=== PATIENT | female | born 1940 | race Caucasian/White ===

== ENCOUNTER 2020-12-21 14:50 | Inpatient (IN) ==
[2020-12-21 16:33] LABS: Basophils % 0.3 %; Eosinophils # 0.1 K/mcL (0.0-0.6); Eosinophils % 1.2 %; Hematocrit 38.5 % (35.3-44.9); Hemoglobin 11.4 g/dL (11.5-15.4); Immature Granulocytes % 0.3 % (0-4); Lymphocytes # 0.9 K/mcL (0.6-4.6); Lymphocytes % 15.2 %; Mean Corpuscular HGB Conc 29.6 g/dL (31.6-35.5); Mean Corpuscular Hemoglobin 27.9 pg (28.0-33.3); Mean Corpuscular Volume 94.4 fL (83.0-100.0); Mean Platelet Volume 8.8 fL (9.4-12.4); Monocytes # 0.5 K/mcL (0.0-1.3); Monocytes % 8.6 %; Platelet Count 178 K/mcL (140-400); Red Blood Count 4.08 M/mcL (3.82-4.97); Red Cell Distribution Width 14.9 % (11.5-14.5); Segmented Neutrophils % 74.4 %; White Blood Count 5.7 K/mcL (4.3-11.1)
[2020-12-21 16:46] LABS: Neutrophils # 4.2 K/mcL (1.6-8.9)
[2020-12-21 16:51] LABS: Alanine Aminotransferase 14 Units/L (7-52); Albumin 3.6 g/dL (3.5-5.7); Albumin/Globulin Ratio 1.1 (1.1-2.2); Alkaline Phosphatase 55 Units/L (34-104); Aspartate Amino Transferase 16 Units/L (13-39); BUN/Creatinine Ratio 28 (6-26); Bilirubin,Total 0.3 mg/dL (0.3-1.0); Blood Urea Nitrogen 20 mg/dL (8-23); Calcium 9.1 mg/dL (8.6-10.3); Carbon Dioxide 33 mEq/L (23-29); Chloride 103 mEq/L (98-107); Globulin 3.2 g/dL (2.4-3.5); Glucose 102 mg/dL (70-105); Osmolality,Calculated 295 (280-300); Potassium 4.3 mEq/L (3.5-5.1); Sodium 141 mEq/L (136-145); Total Protein 6.8 g/dL (6.4-8.9); eGFR For African Americans > 60 (> 60); eGFR For Non-African Americans > 60 (> 60)
[2020-12-21] MEDS ORDERED: Naloxone 0.4 MG/ML INJ IVP PRN (21:07)
[2020-12-21] MEDS ORDERED: Melatonin 3 MG TABLET PO PRN (21:07)
[2020-12-21] MEDS ORDERED: Ondansetron 4 MG/2 ML VIAL IVP PRN (21:07)
[2020-12-21] MEDS ORDERED: Furosemide 40 MG/4 ML VIAL IVP SCH (23:45)
[2020-12-21] MEDS ORDERED: Dextrose Gel 15 GM/37.5 ML TUBE PO PRN ×2 (23:46)
[2020-12-21] MEDS ORDERED: D5% in Water 1,000 ML IVC PRN (23:46)
[2020-12-21] MEDS ORDERED: *HR* Dextrose 50 % in Water (Vial) 50 ML VIAL IVP PRN (23:46)
[2020-12-22] MEDS: Nystatin POWDER 30 GM BOTTLE TP SCH ×4 (01:09→19:51)
[2020-12-22] MEDS: Insulin LISPRO 300 UNITS/3 ML VIAL SUBQ SCH ×4 (01:13→17:58)
[2020-12-22 05:26] LABS: Basophils % 0.2 %; Red Cell Distribution Width 15.1 % (11.5-14.5)
[2020-12-22 05:27] LABS: Eosinophils # 0.1 K/mcL (0.0-0.6); Eosinophils % 1.8 %; Hematocrit 37.6 % (35.3-44.9); Hemoglobin 11.2 g/dL (11.5-15.4); Immature Granulocytes % 0.4 % (0-4); Lymphocytes % 18.2 %; Mean Corpuscular HGB Conc 29.8 g/dL (31.6-35.5); Mean Corpuscular Hemoglobin 27.7 pg (28.0-33.3); Mean Corpuscular Volume 92.8 fL (83.0-100.0); Mean Platelet Volume 9.4 fL (9.4-12.4); Monocytes # 0.5 K/mcL (0.0-1.3); Monocytes % 9.9 %; Neutrophils # 3.8 K/mcL (1.6-8.9); Platelet Count 175 K/mcL (140-400); Red Blood Count 4.05 M/mcL (3.82-4.97); Segmented Neutrophils % 69.5 %; White Blood Count 5.5 K/mcL (4.3-11.1)
[2020-12-22 05:28] LABS: Hypochromasia Present (Not Present); Platelet Estimate Normal (Normal)
[2020-12-22 05:35] LABS: Prothrombin Time 22.3 Seconds (9.4-12.1)
[2020-12-22 05:45] LABS: Alanine Aminotransferase 15 Units/L (7-52); Albumin 3.4 g/dL (3.5-5.7); Albumin/Globulin Ratio 1.1 (1.1-2.2); Alkaline Phosphatase 53 Units/L (34-104); Aspartate Amino Transferase 17 Units/L (13-39); BUN/Creatinine Ratio 28 (6-26); Bilirubin,Total 0.4 mg/dL (0.3-1.0); Blood Urea Nitrogen 19 mg/dL (8-23); Calcium 8.8 mg/dL (8.6-10.3); Carbon Dioxide 37 mEq/L (23-29); Chloride 102 mEq/L (98-107); Glucose 114 mg/dL (70-105); Magnesium 2.1 mg/dL (1.6-2.6); Osmolality,Calculated 297 (280-300); Potassium 4.1 mEq/L (3.5-5.1); Sodium 142 mEq/L (136-145); Total Protein 6.4 g/dL (6.4-8.9); Troponin I < 0.03 ng/mL (< 0.04); eGFR For African Americans > 60 (> 60); eGFR For Non-African Americans > 60 (> 60)
[2020-12-22] MEDS ORDERED: Saline Nasal Spray 44 ML BOTTLE NS PRN (08:07)
[2020-12-22] MEDS ORDERED: Albumin 25% 25gram/100mL 25 GM/100 ML IV.SOLN IVPB SCH (08:15)
[2020-12-22] MEDS ORDERED: Ipratropium/Albuterol Neb 3 ML IH PRN (08:17)
[2020-12-22] MEDS ORDERED: Furosemide 40 MG/4 ML VIAL IVP SCH (09:00)
[2020-12-22] MEDS: Multivit/Ca/Min/Fe/FA 1 TAB TABLET PO SCH (09:05)
[2020-12-22 10:30] LABS: Thyroid Stimulating Hormone 13.574 mcIU/mL (0.340-5.600)
[2020-12-22 11:31] LABS: ABG Base Excess 13 mEq/L (-2 to 3); ABG HCO3 42 mEq/L (21-27); ABG Oxygen Saturation 94 % (95-98); ABG PCO2 77 mmHg (35-45); ABG PH 7.35 pH Units (7.32-7.45); ABG PO2 78 mmHg (85-104); ABG TCO2 45 mEq/L (20-26); Blood Gas FiO2 3.5 (1-15=lpm or21-100=%)
[2020-12-22] MEDS ORDERED: *HR* Heparin 5,000 UNIT/ML VIAL IVP PRN ×2 (15:53)
[2020-12-22] MEDS: Albumin 25% 25gram/100mL 25 GM/100 ML IV.SOLN IVPB SCH (17:20)
[2020-12-22] MEDS: Acetaminophen 325 MG TABLET PO PRN (17:21)
[2020-12-22] MEDS ORDERED: Warfarin perPT PO PRN (18:00)
[2020-12-22] MEDS ORDERED: *HR* Warfarin 2 MG TABLET PO ONE (18:00)
[2020-12-22 18:18] LABS: Hematocrit 37.9 % (35.3-44.9); Hemoglobin 11.3 g/dL (11.5-15.4); Mean Corpuscular HGB Conc 29.8 g/dL (31.6-35.5); Mean Corpuscular Hemoglobin 28.1 pg (28.0-33.3); Mean Corpuscular Volume 94.3 fL (83.0-100.0); Mean Platelet Volume 9.3 fL (9.4-12.4); Platelet Count 166 K/mcL (140-400); Red Blood Count 4.02 M/mcL (3.82-4.97); Red Cell Distribution Width 15.3 % (11.5-14.5); White Blood Count 5.3 K/mcL (4.3-11.1)
[2020-12-22] MEDS: Heparin 25,000UNIT/250ML 1/2NS 25,000 UNIT/250 ML IV.SOLN IVC SCH (18:41)
[2020-12-22] MEDS: Furosemide 40 MG/4 ML VIAL IVP SCH (19:51)
[2020-12-22 20:14] LABS: Estimated Average Glucose 120 mg/dl; Hemoglobin A1C 5.8 %
[2020-12-22 20:14] LABS: Chol/HDL Ratio 2.8 (0-4.9)
[2020-12-22 20:25] LABS: Triiodothyronine (T3) Total 0.83 ng/mL (0.87-1.78)
[2020-12-23] MEDS: Acetaminophen 325 MG TABLET PO PRN (00:32)
[2020-12-23 01:25] LABS: Basophils % 0.4 %; Eosinophils # 0.1 K/mcL (0.0-0.6); Eosinophils % 2.3 %; Hematocrit 35.5 % (35.3-44.9); Hemoglobin 10.3 g/dL (11.5-15.4); Immature Granulocytes % 0.4 % (0-4); Lymphocytes # 1.4 K/mcL (0.6-4.6); Lymphocytes % 27.3 %; Mean Corpuscular Hemoglobin 27.3 pg (28.0-33.3); Mean Corpuscular Volume 94.2 fL (83.0-100.0); Monocytes # 0.4 K/mcL (0.0-1.3); Monocytes % 8.3 %; Neutrophils # 3.2 K/mcL (1.6-8.9); Platelet Count 145 K/mcL (140-400); Red Blood Count 3.77 M/mcL (3.82-4.97); Red Cell Distribution Width 15.3 % (11.5-14.5); Segmented Neutrophils % 61.3 %; White Blood Count 5.2 K/mcL (4.3-11.1)
[2020-12-23 01:52] LABS: INR 1.8; Prothrombin Time 20.6 Seconds (9.4-12.1)
[2020-12-23 01:54] LABS: BUN/Creatinine Ratio 26 (6-26); Blood Urea Nitrogen 19 mg/dL (8-23); Calcium 8.8 mg/dL (8.6-10.3); Carbon Dioxide 39 mEq/L (23-29); Chloride 97 mEq/L (98-107); Glucose 116 mg/dL (70-105); Osmolality,Calculated 293 (280-300); Phosphorous 2.7 mg/dL (2.7-4.5); Potassium 3.8 mEq/L (3.5-5.1); Sodium 140 mEq/L (136-145); eGFR For African Americans > 60 (> 60); eGFR For Non-African Americans > 60 (> 60)
[2020-12-23 01:58] LABS: % Iron Saturation 14 % (15-50); Iron 46 mcg/dL (50-170); Transferrin 227 mg/dL (203-362)
[2020-12-23 02:18] LABS: Ferritin 26 ng/mL (10-120)
[2020-12-23 02:23] LABS: Folate 12.5 ng/mL (3.0-16.0)
[2020-12-23] MEDS: Heparin 25,000UNIT/250ML 1/2NS 25,000 UNIT/250 ML IV.SOLN IVC SCH ×2 (05:23→11:32)
[2020-12-23] MEDS: Albumin 25% 25gram/100mL 25 GM/100 ML IV.SOLN IVPB SCH ×2 (05:38→17:47)
[2020-12-23] MEDS: Furosemide 40 MG/4 ML VIAL IVP SCH ×2 (07:40→21:09)
[2020-12-23] MEDS ORDERED: Iron Sucrose Complex 400 MG in 0.9 % Sodium Chloride 250 ML IVPB ONE (07:40)
[2020-12-23] MEDS: Multivit/Ca/Min/Fe/FA 1 TAB TABLET PO SCH (07:41)
[2020-12-23] MEDS: Nystatin POWDER 30 GM BOTTLE TP SCH ×3 (07:42→21:11)
[2020-12-23] MEDS: Insulin LISPRO 300 UNITS/3 ML VIAL SUBQ SCH ×3 (07:56→17:07)
[2020-12-24] MEDS: Albumin 25% 25gram/100mL 25 GM/100 ML IV.SOLN IVPB SCH (05:47)
[2020-12-24 06:38] LABS: Basophils % 0.4 %; Mean Corpuscular Volume 95.5 fL (83.0-100.0); Platelet Count 157 K/mcL (140-400); Segmented Neutrophils % 67.8 %
[2020-12-24 06:40] LABS: Eosinophils # 0.1 K/mcL (0.0-0.6); Hematocrit 36.2 % (35.3-44.9); Hemoglobin 10.6 g/dL (11.5-15.4); Mean Corpuscular HGB Conc 29.3 g/dL (31.6-35.5); Mean Platelet Volume 9.1 fL (9.4-12.4); Monocytes # 0.4 K/mcL (0.0-1.3); Monocytes % 8.8 %; Neutrophils # 3.4 K/mcL (1.6-8.9); Red Blood Count 3.79 M/mcL (3.82-4.97); Red Cell Distribution Width 15.2 % (11.5-14.5)
[2020-12-24 06:46] LABS: INR 1.5; Prothrombin Time 17.6 Seconds (9.4-12.1)
[2020-12-24 06:55] LABS: BUN/Creatinine Ratio 27 (6-26); Blood Urea Nitrogen 19 mg/dL (8-23); Carbon Dioxide 39 mEq/L (23-29); Chloride 98 mEq/L (98-107); Glucose 131 mg/dL (70-105); Magnesium 2.1 mg/dL (1.6-2.6); Osmolality,Calculated 296 (280-300); Phosphorous 2.7 mg/dL (2.7-4.5); Potassium 3.6 mEq/L (3.5-5.1); Sodium 141 mEq/L (136-145); eGFR For African Americans > 60 (> 60); eGFR For Non-African Americans > 60 (> 60)
[2020-12-24 06:58] LABS: Adenovirus Not Detected (Not Detect); Bordetella Pertussis Not Detected (Not Detect); Chlamydophila pneumoniae Not Detected (Not Detect); Coronavirus 229E Not Detected (Not Detect); Coronavirus HKU1 Not Detected (Not Detect); Coronavirus NL63 Not Detected (Not Detect); Coronavirus OC43 Not Detected (Not Detect); Human Metapneumovirus Not Detected (Not Detect); Human Rhinovirus/Enterovirus Not Detected (Not Detect); Influenza A Subtype 2009 H1 Not Detected (Not Detect); Influenza B Not Detected (Not Detect); Mycoplasma pneumoniae Not Detected (Not Detect); Parainfluenza Virus 1 Not Detected (Not Detect); Parainfluenza Virus 2 Not Detected (Not Detect); Parainfluenza Virus 3 Not Detected (Not Detect); Parainfluenza Virus 4 Not Detected (Not Detect); Respiratory Syncytial Virus Not Detected (Not Detect); SARS-CoV-2 Not Detected (Not Detect)
[2020-12-24] MEDS: Heparin 25,000UNIT/250ML 1/2NS 25,000 UNIT/250 ML IV.SOLN IVC SCH ×2 (08:04→15:58)
[2020-12-24] MEDS: Nystatin POWDER 30 GM BOTTLE TP SCH ×3 (08:06→21:15)
[2020-12-24] MEDS: Multivit/Ca/Min/Fe/FA 1 TAB TABLET PO SCH (08:06)
[2020-12-24] MEDS: Furosemide 40 MG/4 ML VIAL IVP SCH (08:06)
[2020-12-24] MEDS: Insulin LISPRO 300 UNITS/3 ML VIAL SUBQ SCH ×3 (08:07→16:34)
[2020-12-24] MEDS: carvediloL 6.25 MG TABLET PO SCH (16:39)
[2020-12-24] MEDS: Apixaban 5 MG TABLET PO SCH (21:14)
[2020-12-24] MEDS: Budesonide/Formoterol 160/4.5 1 PUFF INH IH SCH (23:21)
[2020-12-25 05:17] LABS: Basophils % 0.2 %; Eosinophils # 0.1 K/mcL (0.0-0.6); Eosinophils % 2.2 %; Hematocrit 35.6 % (35.3-44.9); Hemoglobin 10.8 g/dL (11.5-15.4); Immature Granulocytes % 0.6 % (0-4); Lymphocytes % 20.5 %; Mean Corpuscular HGB Conc 30.3 g/dL (31.6-35.5); Mean Corpuscular Hemoglobin 29.1 pg (28.0-33.3); Mean Platelet Volume 9.2 fL (9.4-12.4); Monocytes # 0.5 K/mcL (0.0-1.3); Monocytes % 8.9 %; Neutrophils # 3.4 K/mcL (1.6-8.9); Platelet Count 166 K/mcL (140-400); Red Blood Count 3.71 M/mcL (3.82-4.97); Red Cell Distribution Width 15.3 % (11.5-14.5); Segmented Neutrophils % 67.6 %; White Blood Count 5.1 K/mcL (4.3-11.1)
[2020-12-25 05:24] LABS: INR 1.9; Prothrombin Time 21.3 Seconds (9.4-12.1)
[2020-12-25 05:37] LABS: BUN/Creatinine Ratio 29 (6-26); Blood Urea Nitrogen 25 mg/dL (8-23); Calcium 9.2 mg/dL (8.6-10.3); Carbon Dioxide 38 mEq/L (23-29); Chloride 101 mEq/L (98-107); Glucose 129 mg/dL (70-105); Magnesium 2.3 mg/dL (1.6-2.6); Osmolality,Calculated 300 (280-300); Phosphorous 2.8 mg/dL (2.7-4.5); Potassium 3.9 mEq/L (3.5-5.1); Sodium 142 mEq/L (136-145); eGFR For African Americans > 60 (> 60); eGFR For Non-African Americans > 60 (> 60)
[2020-12-25] MEDS: Apixaban 5 MG TABLET PO SCH ×2 (07:55→20:23)
[2020-12-25] MEDS: Multivit/Ca/Min/Fe/FA 1 TAB TABLET PO SCH (07:55)
[2020-12-25] MEDS: carvediloL 6.25 MG TABLET PO SCH ×2 (07:56→15:58)
[2020-12-25] MEDS: Nystatin POWDER 30 GM BOTTLE TP SCH ×3 (07:56→20:24)
[2020-12-25] MEDS: Insulin LISPRO 300 UNITS/3 ML VIAL SUBQ SCH ×3 (07:57→15:58)
[2020-12-25] MEDS: Budesonide/Formoterol 160/4.5 1 PUFF INH IH SCH ×2 (10:35→20:21)
[2020-12-25] MEDS: Acetaminophen 325 MG TABLET PO PRN (20:23)
[2020-12-26 07:07] LABS: Hematocrit 36.4 % (35.3-44.9); Hemoglobin 10.6 g/dL (11.5-15.4); Mean Corpuscular HGB Conc 29.1 g/dL (31.6-35.5); Mean Corpuscular Hemoglobin 27.6 pg (28.0-33.3); Mean Corpuscular Volume 94.8 fL (83.0-100.0); Mean Platelet Volume 9.3 fL (9.4-12.4); Platelet Count 168 K/mcL (140-400); Red Blood Count 3.84 M/mcL (3.82-4.97); Red Cell Distribution Width 15.1 % (11.5-14.5); White Blood Count 4.9 K/mcL (4.3-11.1)
[2020-12-26 07:19] LABS: INR 1.9; Prothrombin Time 21.1 Seconds (9.4-12.1)
[2020-12-26 07:26] LABS: BUN/Creatinine Ratio 45 (6-26); Blood Urea Nitrogen 30 mg/dL (8-23); Calcium 9.4 mg/dL (8.6-10.3); Carbon Dioxide 33 mEq/L (23-29); Chloride 99 mEq/L (98-107); Glucose 104 mg/dL (70-105); Magnesium 2.3 mg/dL (1.6-2.6); Osmolality,Calculated 292 (280-300); Phosphorous 2.8 mg/dL (2.7-4.5); Potassium 4.5 mEq/L (3.5-5.1); Sodium 138 mEq/L (136-145); eGFR For African Americans > 60 (> 60); eGFR For Non-African Americans > 60 (> 60)
[2020-12-26] MEDS: Budesonide/Formoterol 160/4.5 1 PUFF INH IH SCH (07:59)
[2020-12-26] MEDS ORDERED: Furosemide 20 MG TABLET PO SCH (09:00)
[2020-12-26] MEDS: carvediloL 6.25 MG TABLET PO SCH (10:56)
[2020-12-26] MEDS: Apixaban 5 MG TABLET PO SCH (10:56)
[2020-12-26] MEDS: Multivit/Ca/Min/Fe/FA 1 TAB TABLET PO SCH (10:56)
[2020-12-26] MEDS: Insulin LISPRO 300 UNITS/3 ML VIAL SUBQ SCH (10:57)
[2020-12-26] MEDS: Nystatin POWDER 30 GM BOTTLE TP SCH (10:57)
[2020-12-26 16:06] VITALS: BP 124/74
== END 2020-12-26 17:25 | disposition home health service (06) | DRG 291 ==
LOC: 2ANU 14:50 → EMEROOARM 14:50 → SUATTDRO 18:40 → 2ANU 19:47
PROVIDERS: ADMIT Internal Medicine; ATTEND Internal Medicine

== ENCOUNTER 2020-12-29 23:29 | Inpatient (IN) ==
[2020-12-30 00:26] LABS: White Blood Count 5.2 K/mcL (4.3-11.1)
[2020-12-30 00:27] LABS: Basophils % 0.4 %; Eosinophils # 0.1 K/mcL (0.0-0.6); Eosinophils % 1.7 %; Hematocrit 38.6 % (35.3-44.9); Hemoglobin 11.4 g/dL (11.5-15.4); Immature Granulocytes % 0.6 % (0-4); Lymphocytes # 0.8 K/mcL (0.6-4.6); Lymphocytes % 16.1 %; Mean Corpuscular HGB Conc 29.5 g/dL (31.6-35.5); Mean Corpuscular Hemoglobin 27.9 pg (28.0-33.3); Mean Corpuscular Volume 94.6 fL (83.0-100.0); Monocytes # 0.4 K/mcL (0.0-1.3); Monocytes % 8.3 %; Neutrophils # 3.8 K/mcL (1.6-8.9); Platelet Count 182 K/mcL (140-400); Red Blood Count 4.08 M/mcL (3.82-4.97); Red Cell Distribution Width 15.7 % (11.5-14.5); Segmented Neutrophils % 72.9 %
[2020-12-30 00:30] LABS: VBG HCO3 36 mEq/L (21-27); VBG PCO2 75 mmHg (41-51); VBG PH 7.29 pH Units (7.32-7.42); VBG PO2 83 mmHg (25-50)
[2020-12-30 00:32] LABS: Bacteria,Urine Moderate per hpf (None-Few); Bilirubin,Urine Negative (Negative); Blood,Urine Small (Negative); Clarity,Urine Ex.Turbid (Clear); Color,Urine Yellow (Yellow); Glucose,Urine (UA) Normal (Normal); Ketones,Urine Negative (Negative); Leukocyte Esterase,Urine Large (Negative); Mucus,Urine Moderate per lpf (None-Few); Nitrite,Urine Positive (Negative); PH,Urine 5.5 pH Units (5.0-8.0); Protein,Urine 50 mg/dL (Neg-Trace); Specific Gravity,Urine 1.025 (1.010-1.025); Urobilinogen,Urine Normal (Normal); WBC,Urine TNTC per hpf (0-3)
[2020-12-30] MEDS ORDERED: Piperacillin/Tazobactam 3.375 GM in 0.9 % Sodium Chloride Mini Bag 100 ML IVPB ONE (00:35)
[2020-12-30 00:47] LABS: Alanine Aminotransferase 19 Units/L (7-52); Albumin 4.3 g/dL (3.5-5.7); Albumin/Globulin Ratio 1.4 (1.1-2.2); Alkaline Phosphatase 51 Units/L (34-104); Aspartate Amino Transferase 18 Units/L (13-39); BUN/Creatinine Ratio 43 (6-26); Bilirubin,Total 0.5 mg/dL (0.3-1.0); Blood Urea Nitrogen 29 mg/dL (8-23); Calcium 9.5 mg/dL (8.6-10.3); Carbon Dioxide 33 mEq/L (23-29); Chloride 100 mEq/L (98-107); Globulin 3.1 g/dL (2.4-3.5); Glucose 123 mg/dL (70-105); Osmolality,Calculated 295 (280-300); Sodium 139 mEq/L (136-145); Total Protein 7.4 g/dL (6.4-8.9); eGFR For African Americans > 60 (> 60); eGFR For Non-African Americans > 60 (> 60)
[2020-12-30 00:48] LABS: Troponin I < 0.03 ng/mL (< 0.04)
[2020-12-30] MEDS ORDERED: Ondansetron 4 MG/2 ML VIAL IVP PRN (04:13)
[2020-12-30] MEDS ORDERED: Naloxone 0.4 MG/ML INJ IVP PRN (04:13)
[2020-12-30 04:19] LABS: ABG Base Excess 9 mEq/L (-2 to 3); ABG HCO3 38 mEq/L (21-27); ABG Oxygen Saturation 90 % (95-98); ABG PCO2 77 mmHg (35-45); ABG PO2 69 mmHg (85-104); ABG TCO2 40 mEq/L (20-26)
[2020-12-30] MEDS ORDERED: *HR* Dextrose 50 % in Water (Vial) 50 ML VIAL IVP PRN (04:23)
[2020-12-30] MEDS ORDERED: D5% in Water 1,000 ML IVC PRN (04:23)
[2020-12-30] MEDS ORDERED: Dextrose Gel 15 GM/37.5 ML TUBE PO PRN ×2 (04:23)
[2020-12-30 04:47] LABS: % Iron Saturation 11 % (15-50); Iron 39 mcg/dL (50-170); Transferrin 260 mg/dL (203-362)
[2020-12-30 05:06] LABS: Ferritin 54 ng/mL (10-120)
[2020-12-30 06:56] LABS: ABG Base Excess 10 mEq/L (-2 to 3); ABG HCO3 39 mEq/L (21-27); ABG Oxygen Saturation 97 % (95-98); ABG PCO2 75 mmHg (35-45); ABG PH 7.32 pH Units (7.32-7.45); ABG PO2 101 mmHg (85-104); ABG TCO2 41 mEq/L (20-26); Blood Gas VT 450 cc
[2020-12-30] MEDS: Piperacillin/Tazobactam 3.375 GM in 0.9 % Sodium Chloride Mini Bag 100 ML IVPB SCH ×2 (08:05→17:04)
[2020-12-30] MEDS: MethylPREDNISolone 40 MG/ML VIAL IVP SCH ×2 (08:06→17:04)
[2020-12-30] MEDS: Insulin LISPRO 300 UNITS/3 ML VIAL SUBQ SCH ×2 (08:23→12:24)
[2020-12-30] MEDS ORDERED: Apixaban 5 MG TABLET PO SCH (09:00)
[2020-12-30 09:34] LABS: ABG Base Excess 8 mEq/L (-2 to 3); ABG HCO3 37 mEq/L (21-27); ABG Oxygen Saturation 88 % (95-98); ABG PCO2 72 mmHg (35-45); ABG PH 7.31 pH Units (7.32-7.45); ABG PO2 63 mmHg (85-104); ABG TCO2 39 mEq/L (20-26)
[2020-12-30] MEDS: Ipratropium/Albuterol Neb 3 ML IH SCH ×5 (09:34→23:52)
[2020-12-30] MEDS: Budesonide/Formoterol 160/4.5 1 PUFF INH IH SCH ×2 (10:06→20:17)
[2020-12-30] MEDS: carvediloL 6.25 MG TABLET PO SCH (17:03)
[2020-12-30] MEDS: Furosemide 20 MG/2 ML VIAL IVP SCH (17:04)
[2020-12-30] MEDS: Apixaban 5 MG TABLET PO SCH (21:55)
[2020-12-30] MEDS ORDERED: Budesonide/Formoterol 160/4.5 1 PUFF INH IH SCH (22:00)
[2020-12-31] MEDS: Piperacillin/Tazobactam 3.375 GM in 0.9 % Sodium Chloride Mini Bag 100 ML IVPB SCH ×2 (00:41→08:47)
[2020-12-31] MEDS: Ipratropium/Albuterol Neb 3 ML IH SCH ×6 (04:10→23:03)
[2020-12-31 04:52] LABS: Hematocrit 34.8 % (35.3-44.9); Hemoglobin 10.1 g/dL (11.5-15.4); Mean Corpuscular Hemoglobin 27.7 pg (28.0-33.3); Mean Corpuscular Volume 95.6 fL (83.0-100.0); Mean Platelet Volume 9.4 fL (9.4-12.4); Platelet Count 204 K/mcL (140-400); Red Blood Count 3.64 M/mcL (3.82-4.97); Red Cell Distribution Width 15.3 % (11.5-14.5)
[2020-12-31 05:06] LABS: BUN/Creatinine Ratio 30 (6-26); Blood Urea Nitrogen 25 mg/dL (8-23); Calcium 8.8 mg/dL (8.6-10.3); Carbon Dioxide 36 mEq/L (23-29); Chloride 102 mEq/L (98-107); Chol/HDL Ratio 2.8 (0-4.9); Cholesterol 127 mg/dL (< 200); Glucose 183 mg/dL (70-105); HDL Cholesterol 45 mg/dL (40-59); LDL Cholesterol,Calculated 73 mg/dL (< 100); Magnesium 2.1 mg/dL (1.6-2.6); Osmolality,Calculated 303 (280-300); Potassium 4.3 mEq/L (3.5-5.1); Sodium 142 mEq/L (136-145); Triglycerides 44 mg/dL (< 150); eGFR For African Americans > 60 (> 60); eGFR For Non-African Americans > 60 (> 60)
[2020-12-31] MEDS: MethylPREDNISolone 40 MG/ML VIAL IVP SCH ×2 (05:15→16:40)
[2020-12-31] MEDS: Budesonide/Formoterol 160/4.5 1 PUFF INH IH SCH ×2 (07:35→19:53)
[2020-12-31] MEDS: Apixaban 5 MG TABLET PO SCH ×2 (08:46→21:39)
[2020-12-31] MEDS: carvediloL 6.25 MG TABLET PO SCH ×2 (08:46→16:40)
[2020-12-31] MEDS: Furosemide 20 MG/2 ML VIAL IVP SCH ×2 (08:47→16:40)
[2020-12-31 11:58] LABS: Estimated Average Glucose 123 mg/dl; Hemoglobin A1C 5.9 %
[2020-12-31 11:59] LABS: Thyroid Stimulating Hormone 3.295 mcIU/mL (0.340-5.600)
[2020-12-31] MEDS: Ertapenem 1,000 MG in 0.9 % Sodium Chloride Mini Bag 100 ML IVPB SCH (12:29)
[2020-12-31] MEDS: Acetaminophen 325 MG TABLET PO PRN (13:08)
[2020-12-31 19:39] LABS: Folate 8.6 ng/mL (3.0-16.0)
[2021-01-01] MEDS: Ipratropium/Albuterol Neb 3 ML IH SCH ×5 (04:04→20:13)
[2021-01-01] MEDS: MethylPREDNISolone 40 MG/ML VIAL IVP SCH ×2 (05:48→17:16)
[2021-01-01] MEDS: Budesonide/Formoterol 160/4.5 1 PUFF INH IH SCH ×2 (07:37→20:14)
[2021-01-01 08:59] LABS: Red Cell Distribution Width 15.7 % (11.5-14.5)
[2021-01-01 09:01] LABS: Hematocrit 36.7 % (35.3-44.9); Hemoglobin 10.9 g/dL (11.5-15.4); Immature Granulocytes % 0.5 % (0-4); Lymphocytes # 0.8 K/mcL (0.6-4.6); Lymphocytes % 9.2 %; Mean Corpuscular HGB Conc 29.7 g/dL (31.6-35.5); Mean Corpuscular Hemoglobin 28.4 pg (28.0-33.3); Mean Corpuscular Volume 95.6 fL (83.0-100.0); Mean Platelet Volume 9.6 fL (9.4-12.4); Monocytes # 0.4 K/mcL (0.0-1.3); Monocytes % 5.3 %; Platelet Count 198 K/mcL (140-400); Red Blood Count 3.84 M/mcL (3.82-4.97); White Blood Count 8.3 K/mcL (4.3-11.1)
[2021-01-01 09:03] LABS: Neutrophils # 7.1 K/mcL (1.6-8.9)
[2021-01-01 09:17] LABS: Platelet Estimate Normal (Normal)
[2021-01-01 09:18] LABS: Anisocytosis 1+ (Not Present)
[2021-01-01] MEDS: Apixaban 5 MG TABLET PO SCH ×2 (09:18→20:22)
[2021-01-01] MEDS: Ertapenem 1,000 MG in 0.9 % Sodium Chloride Mini Bag 100 ML IVPB SCH (09:19)
[2021-01-01] MEDS: Furosemide 20 MG/2 ML VIAL IVP SCH ×2 (09:19→17:16)
[2021-01-01] MEDS: carvediloL 6.25 MG TABLET PO SCH ×2 (09:19→17:16)
[2021-01-01 09:24] LABS: BUN/Creatinine Ratio 38 (6-26); Blood Urea Nitrogen 27 mg/dL (8-23); Calcium 8.6 mg/dL (8.6-10.3); Carbon Dioxide 26 mEq/L (23-29); Chloride 103 mEq/L (98-107); Glucose 125 mg/dL (70-105); Osmolality,Calculated 299 (280-300); Potassium 4.2 mEq/L (3.5-5.1); Sodium 141 mEq/L (136-145); eGFR For African Americans > 60 (> 60); eGFR For Non-African Americans > 60 (> 60)
[2021-01-01 11:40] LABS: Magnesium 2.1 mg/dL (1.6-2.6); Phosphorous 2.3 mg/dL (2.7-4.5)
[2021-01-01] MEDS: Acetaminophen 325 MG TABLET PO PRN (21:45)
[2021-01-02] MEDS: Ipratropium/Albuterol Neb 3 ML IH SCH ×6 (00:20→20:08)
[2021-01-02] MEDS: MethylPREDNISolone 40 MG/ML VIAL IVP SCH ×2 (05:44→16:31)
[2021-01-02 05:46] LABS: Basophils % 0.1 %; Hematocrit 37.5 % (35.3-44.9); Immature Granulocytes % 0.7 % (0-4); Lymphocytes # 1.1 K/mcL (0.6-4.6); Lymphocytes % 12.7 %; Mean Corpuscular HGB Conc 29.3 g/dL (31.6-35.5); Mean Corpuscular Hemoglobin 28.1 pg (28.0-33.3); Mean Corpuscular Volume 95.7 fL (83.0-100.0); Mean Platelet Volume 9.6 fL (9.4-12.4); Monocytes # 0.6 K/mcL (0.0-1.3); Monocytes % 6.8 %; Neutrophils # 6.8 K/mcL (1.6-8.9); Nucleated Red Blood Cells 0.2 /100 WBC (0); Platelet Count 216 K/mcL (140-400); Red Blood Count 3.92 M/mcL (3.82-4.97); Red Cell Distribution Width 15.7 % (11.5-14.5); Segmented Neutrophils % 79.7 %; White Blood Count 8.6 K/mcL (4.3-11.1)
[2021-01-02 06:12] LABS: BUN/Creatinine Ratio 49 (6-26); Blood Urea Nitrogen 33 mg/dL (8-23); Calcium 9.1 mg/dL (8.6-10.3); Carbon Dioxide 41 mEq/L (23-29); Chloride 99 mEq/L (98-107); Glucose 144 mg/dL (70-105); Magnesium 2.3 mg/dL (1.6-2.6); Osmolality,Calculated 304 (280-300); Phosphorous 2.6 mg/dL (2.7-4.5); Potassium 4.3 mEq/L (3.5-5.1); Sodium 142 mEq/L (136-145); eGFR For African Americans > 60 (> 60); eGFR For Non-African Americans > 60 (> 60)
[2021-01-02] MEDS: Budesonide/Formoterol 160/4.5 1 PUFF INH IH SCH ×2 (07:11→20:08)
[2021-01-02] MEDS: Apixaban 5 MG TABLET PO SCH ×2 (09:14→20:15)
[2021-01-02] MEDS: carvediloL 6.25 MG TABLET PO SCH ×2 (09:14→16:31)
[2021-01-02] MEDS: Ertapenem 1,000 MG in 0.9 % Sodium Chloride Mini Bag 100 ML IVPB SCH (09:15)
[2021-01-02] MEDS: Nitrofurantoin (BID) 100 MG CAPSULE PO SCH (16:31)
[2021-01-02 20:10] LABS: Influenza A PCR Negative (Negative); Influenza B PCR Negative (Negative); Resp. Syncytial Virus PCR Negative (Negative)
[2021-01-02 20:11] LABS: SARS-CoV-2 by PCR (In House) Negative (Negative)
[2021-01-03] MEDS: Ipratropium/Albuterol Neb 3 ML IH SCH ×5 (00:16→16:05)
[2021-01-03] MEDS: MethylPREDNISolone 40 MG/ML VIAL IVP SCH (05:47)
[2021-01-03] MEDS: Budesonide/Formoterol 160/4.5 1 PUFF INH IH SCH (07:12)
[2021-01-03] MEDS ORDERED: Furosemide 20 MG TABLET PO SCH (09:00)
[2021-01-03] MEDS: Nitrofurantoin (BID) 100 MG CAPSULE PO SCH ×2 (09:38→16:48)
[2021-01-03] MEDS: Apixaban 5 MG TABLET PO SCH (09:39)
[2021-01-03] MEDS: carvediloL 6.25 MG TABLET PO SCH ×2 (09:39→16:48)
[2021-01-03 10:20] LABS: Basophils % 0.1 %; Lymphocytes % 8.4 %
[2021-01-03 10:26] LABS: Hematocrit 39.1 % (35.3-44.9); Hemoglobin 11.6 g/dL (11.5-15.4); Immature Granulocytes % 0.6 % (0-4); Lymphocytes # 0.7 K/mcL (0.6-4.6); Mean Corpuscular HGB Conc 29.7 g/dL (31.6-35.5); Mean Corpuscular Hemoglobin 28.3 pg (28.0-33.3); Mean Corpuscular Volume 95.4 fL (83.0-100.0); Mean Platelet Volume 9.7 fL (9.4-12.4); Monocytes # 0.3 K/mcL (0.0-1.3); Neutrophils # 7.5 K/mcL (1.6-8.9); Platelet Count 221 K/mcL (140-400); Red Cell Distribution Width 15.8 % (11.5-14.5); Segmented Neutrophils % 87.9 %; White Blood Count 8.5 K/mcL (4.3-11.1)
[2021-01-03 10:43] VITALS: BP 139/69
[2021-01-03 10:43] LABS: BUN/Creatinine Ratio 45 (6-26); Blood Urea Nitrogen 33 mg/dL (8-23); Calcium 9.2 mg/dL (8.6-10.3); Carbon Dioxide 36 mEq/L (23-29); Chloride 101 mEq/L (98-107); Glucose 232 mg/dL (70-105); Magnesium 2.4 mg/dL (1.6-2.6); Osmolality,Calculated 307 (280-300); Phosphorous 3.5 mg/dL (2.7-4.5); Potassium 4.6 mEq/L (3.5-5.1); Sodium 141 mEq/L (136-145); eGFR For African Americans > 60 (> 60); eGFR For Non-African Americans > 60 (> 60)
[2021-01-03 12:03] LABS: Hypochromasia Present (Not Present)
[2021-01-04] MEDS ORDERED: predniSONE 20 MG TABLET PO SCH (09:00)
[2021-01-04] MEDS ORDERED: Apixaban 5 MG TABLET PO SCH (21:00)
== END 2021-01-03 18:29 | DRG 189 ==
LOC: EMEROOARM 23:29 → 2ANU 23:29 → SUATTDRO 12-31 17:00
PROVIDERS: ADMIT Student in an Organized Health Care Education/Training Program; ATTEND Student in an Organized Health Care Education/Training Program

== ENCOUNTER 2021-03-13 11:22 | Inpatient (IN) ==
[2021-03-13 14:02] LABS: Basophils % 0.3 %; Eosinophils # 0.1 K/mcL (0.0-0.6); Eosinophils % 1.5 %; Hematocrit 42.9 % (35.3-44.9); Hemoglobin 12.8 g/dL (11.5-15.4); Immature Granulocytes % 1.2 % (0-4); Lymphocytes # 1.4 K/mcL (0.6-4.6); Mean Corpuscular HGB Conc 29.8 g/dL (31.6-35.5); Mean Corpuscular Hemoglobin 29.2 pg (28.0-33.3); Mean Corpuscular Volume 97.9 fL (83.0-100.0); Mean Platelet Volume 8.6 fL (9.4-12.4); Monocytes # 0.6 K/mcL (0.0-1.3); Monocytes % 9.5 %; Neutrophils # 3.8 K/mcL (1.6-8.9); Nucleated Red Blood Cells 0.3 /100 WBC (0); Platelet Count 184 K/mcL (140-400); Red Blood Count 4.38 M/mcL (3.82-4.97); Red Cell Distribution Width 15.6 % (11.5-14.5); Segmented Neutrophils % 63.5 %
[2021-03-13 14:09] LABS: INR 1.1
[2021-03-13 14:32] LABS: Adenovirus Not Detected (Not Detect); Bordetella Pertussis Not Detected (Not Detect); Chlamydophila pneumoniae Not Detected (Not Detect); Coronavirus 229E Not Detected (Not Detect); Coronavirus HKU1 Not Detected (Not Detect); Coronavirus NL63 Not Detected (Not Detect); Coronavirus OC43 Not Detected (Not Detect); Human Metapneumovirus Not Detected (Not Detect); Human Rhinovirus/Enterovirus Not Detected (Not Detect); Influenza A Subtype 2009 H1 Not Detected (Not Detect); Influenza B Not Detected (Not Detect); Mycoplasma pneumoniae Not Detected (Not Detect); Parainfluenza Virus 1 Not Detected (Not Detect); Parainfluenza Virus 2 Not Detected (Not Detect); Parainfluenza Virus 3 Not Detected (Not Detect); Parainfluenza Virus 4 Not Detected (Not Detect); Respiratory Syncytial Virus Not Detected (Not Detect); SARS-CoV-2 Not Detected (Not Detect)
[2021-03-13 14:36] LABS: Alanine Aminotransferase 15 Units/L (7-52); Albumin 3.5 g/dL (3.5-5.7); Albumin/Globulin Ratio 1.3 (1.1-2.2); Alkaline Phosphatase 64 Units/L (34-104); Amylase < 10 Units/L (29-103); Aspartate Amino Transferase 16 Units/L (13-39); BUN/Creatinine Ratio 13 (6-26); Bilirubin,Direct 0.1 mg/dL (0.0-0.2); Bilirubin,Indirect 0.4 mg/dL (0.0-1.0); Bilirubin,Total 0.5 mg/dL (0.3-1.0); Blood Urea Nitrogen 8 mg/dL (8-23); Calcium 9.2 mg/dL (8.6-10.3); Carbon Dioxide 38 mEq/L (23-29); Chloride 100 mEq/L (98-107); Globulin 2.8 g/dL (2.4-3.5); Glucose 129 mg/dL (70-105); Lipase 11 Units/L (11-82); Osmolality,Calculated 298 (280-300); Potassium 3.7 mEq/L (3.5-5.1); Sodium 144 mEq/L (136-145); Total Protein 6.3 g/dL (6.4-8.9); Troponin I < 0.03 ng/mL (< 0.04); eGFR For African Americans > 60 (> 60); eGFR For Non-African Americans > 60 (> 60)
[2021-03-13 15:33] LABS: Bilirubin,Urine Small (Negative); Blood,Urine Small (Negative); Color,Urine Yellow (Yellow); Glucose,Urine (UA) Normal (Normal); Ketones,Urine Trace mg/dL (Negative); Leukocyte Esterase,Urine Moderate (Negative); Nitrite,Urine Positive (Negative); Protein,Urine 100 mg/dL (Neg-Trace); Specific Gravity,Urine 1.025 (1.010-1.025); Urobilinogen,Urine Normal (Normal)
[2021-03-13 15:41] LABS: Clarity,Urine Hazy (Clear)
[2021-03-13 15:44] LABS: Squamous Epithelial Cell,Urine Few per hpf (None-Few)
[2021-03-13 15:45] LABS: Bacteria,Urine Many per hpf (None-Few); RBC,Urine 0-3 per hpf (0-3); WBC,Urine TNTC per hpf (0-3)
[2021-03-13] MEDS ORDERED: Piperacillin/Tazobactam 3.375 GM in 0.9 % Sodium Chloride Mini Bag 100 ML IVPB ONE (17:28)
[2021-03-13] MEDS ORDERED: Naloxone 0.4 MG/ML INJ IVP PRN (21:23)
[2021-03-13] MEDS ORDERED: Ondansetron 4 MG/2 ML VIAL IVP PRN (21:23)
[2021-03-13] MEDS ORDERED: *HR* Dextrose 50 % in Water (Vial) 50 ML VIAL IVP PRN (21:33)
[2021-03-13] MEDS ORDERED: D5% in Water 1,000 ML IVC PRN (21:33)
[2021-03-13] MEDS ORDERED: Dextrose Gel 15 GM/37.5 ML TUBE PO PRN ×2 (21:33)
[2021-03-13] MEDS: Budesonide/Formoterol 160/4.5 1 PUFF INH IH SCH (22:06)
[2021-03-13] MEDS: Piperacillin/Tazobactam 3.375 GM in 0.9 % Sodium Chloride Mini Bag 100 ML IVPB SCH (23:34)
[2021-03-13] MEDS: Vancomycin 1,750 MG/517.5 ML IV.SOLN IVPB SCH (23:35)
[2021-03-14] MEDS: Insulin LISPRO 300 UNITS/3 ML VIAL SUBQ SCH ×4 (00:05→16:34)
[2021-03-14 06:44] LABS: Basophils % 0.5 %; Eosinophils # 0.1 K/mcL (0.0-0.6); Eosinophils % 2.2 %; Hematocrit 39.2 % (35.3-44.9); Hemoglobin 11.7 g/dL (11.5-15.4); Immature Granulocytes % 1.1 % (0-4); Lymphocytes # 1.2 K/mcL (0.6-4.6); Lymphocytes % 21.7 %; Mean Corpuscular HGB Conc 29.8 g/dL (31.6-35.5); Mean Corpuscular Hemoglobin 29.7 pg (28.0-33.3); Mean Corpuscular Volume 99.5 fL (83.0-100.0); Mean Platelet Volume 8.9 fL (9.4-12.4); Monocytes # 0.5 K/mcL (0.0-1.3); Monocytes % 9.4 %; Neutrophils # 3.6 K/mcL (1.6-8.9); Platelet Count 185 K/mcL (140-400); Red Blood Count 3.94 M/mcL (3.82-4.97); Red Cell Distribution Width 15.6 % (11.5-14.5); Segmented Neutrophils % 65.1 %; White Blood Count 5.5 K/mcL (4.3-11.1)
[2021-03-14 07:17] LABS: BUN/Creatinine Ratio 12 (6-26); Blood Urea Nitrogen 8 mg/dL (8-23); Calcium 8.8 mg/dL (8.6-10.3); Carbon Dioxide 41 mEq/L (23-29); Chloride 101 mEq/L (98-107); Glucose 119 mg/dL (70-105); Magnesium 1.8 mg/dL (1.6-2.6); Osmolality,Calculated 299 (280-300); Phosphorous 3.6 mg/dL (2.7-4.5); Potassium 3.4 mEq/L (3.5-5.1); Sodium 145 mEq/L (136-145); eGFR For African Americans > 60 (> 60); eGFR For Non-African Americans > 60 (> 60)
[2021-03-14] MEDS: Budesonide/Formoterol 160/4.5 1 PUFF INH IH SCH ×2 (07:45→23:17)
[2021-03-14] MEDS: Furosemide 20 MG TABLET PO SCH (08:05)
[2021-03-14] MEDS: Apixaban 5 MG TABLET PO SCH ×2 (08:05→19:58)
[2021-03-14] MEDS: Piperacillin/Tazobactam 3.375 GM in 0.9 % Sodium Chloride Mini Bag 100 ML IVPB SCH ×2 (08:05→16:14)
[2021-03-14] MEDS: carvediloL 6.25 MG TABLET PO SCH ×2 (08:05→16:14)
[2021-03-14 08:32] LABS: Thyroid Stimulating Hormone 9.668 mcIU/mL (0.340-5.600)
[2021-03-14 10:04] LABS: Estimated Average Glucose 146 mg/dl; Hemoglobin A1C 6.7 %
[2021-03-14] MEDS: Vancomycin 1,750 MG/517.5 ML IV.SOLN IVPB SCH (10:54)
[2021-03-14] MEDS: Acetaminophen 325 MG TABLET PO PRN (11:44)
[2021-03-14 20:34] LABS: Adenovirus F 40/41 PCR Not detected (Not detect); Astrovirus PCR Not detected (Not detect); C.difficile Toxin A/B Gene PCR Not detected (Not detect); Campylobacter by PCR Not detected (Not detect); Cryptosporidium by PCR Not detected (Not detect); Cyclospora cayetanensis PCR Not detected (Not detect); E. coli O157 by PCR Not detected (Not detect); Entamoeba histolytica PCR Not detected (Not detect); Enteroaggregative E.coli(EAEC) Not detected (Not detect); Enteropathogenic E.coli(EPEC) DETECTED (Not detect); Enterotoxigenic E.coli (ETEC) Not detected (Not detect); Giardia lamblia PCR Not detected (Not detect); Norovirus GI/GII PCR Not detected (Not detect); Plesiomonas shigelloides PCR Not detected (Not detect); Rotavirus A PCR Not detected (Not detect); Salmonella PCR Not detected (Not detect); Sapovirus PCR Not detected (Not detect); Shig/EnteroinvasiveE coli EIEC Not detected (Not detect); Shigalike tox-prod E coli STEC Not detected (Not detect); Vibrio PCR Not detected (Not detect); Vibrio cholerae PCR Not detected (Not detect); Yersinia enterocolitica PCR Not detected (Not detect)
[2021-03-15] MEDS: Piperacillin/Tazobactam 3.375 GM in 0.9 % Sodium Chloride Mini Bag 100 ML IVPB SCH ×2 (00:16→08:06)
[2021-03-15 05:21] LABS: Hematocrit 38.4 % (35.3-44.9); Hemoglobin 11.4 g/dL (11.5-15.4); Mean Corpuscular HGB Conc 29.7 g/dL (31.6-35.5); Mean Corpuscular Hemoglobin 29.3 pg (28.0-33.3); Mean Corpuscular Volume 98.7 fL (83.0-100.0); Mean Platelet Volume 8.6 fL (9.4-12.4); Platelet Count 164 K/mcL (140-400); Red Blood Count 3.89 M/mcL (3.82-4.97); Red Cell Distribution Width 15.7 % (11.5-14.5); White Blood Count 5.3 K/mcL (4.3-11.1)
[2021-03-15 05:39] LABS: BUN/Creatinine Ratio 17 (6-26); Blood Urea Nitrogen 11 mg/dL (8-23); Calcium 8.9 mg/dL (8.6-10.3); Carbon Dioxide 36 mEq/L (23-29); Chloride 101 mEq/L (98-107); Glucose 121 mg/dL (70-105); Osmolality,Calculated 297 (280-300); Potassium 3.3 mEq/L (3.5-5.1); Sodium 143 mEq/L (136-145); eGFR For African Americans > 60 (> 60); eGFR For Non-African Americans > 60 (> 60)
[2021-03-15 07:12] VITALS: O2SAT 92
[2021-03-15] MEDS: Insulin LISPRO 300 UNITS/3 ML VIAL SUBQ SCH ×2 (07:20→11:42)
[2021-03-15] MEDS: Budesonide/Formoterol 160/4.5 1 PUFF INH IH SCH (07:40)
[2021-03-15] MEDS: Furosemide 20 MG TABLET PO SCH (08:06)
[2021-03-15] MEDS: Apixaban 5 MG TABLET PO SCH (08:06)
[2021-03-15] MEDS: carvediloL 6.25 MG TABLET PO SCH (08:06)
[2021-03-15] MEDS ORDERED: Lactobacillus 1 EACH CAP.SPRINK PO SCH (09:00)
[2021-03-15] MEDS ORDERED: Vancomycin 1,750 MG/517.5 ML IV.SOLN IVPB SCH (10:00)
[2021-03-15] MEDS: Acetaminophen 325 MG TABLET PO PRN (10:14)
[2021-03-15 11:12] VITALS: BP 160/83; PULSE 58; TEMP 98
== END 2021-03-15 15:33 | disposition home health service (06) | DRG 689 ==
LOC: EMEROOARM 11:22 → 3ANU 11:22 → SUATTDRO 20:02 → 3ANU 21:35 → SUATTDRO 03-14 13:49
PROVIDERS: ADMIT Student in an Organized Health Care Education/Training Program; ATTEND Internal Medicine

== ENCOUNTER 2021-04-05 10:27 | Inpatient (IN) ==
[2021-04-05 11:38] LABS: Bacteria,Urine Few per hpf (None-Few); Bilirubin,Urine Negative (Negative); Blood,Urine Negative (Negative); Clarity,Urine Turbid (Clear); Color,Urine Dark-Yellow (Yellow); Glucose,Urine (UA) Normal (Normal); Hyaline Casts,Urine Few per lpf (None Seen); Ketones,Urine 20 mg/dL (Negative); Leukocyte Esterase,Urine Moderate (Negative); Mucus,Urine Few per lpf (None-Few); Nitrite,Urine Negative (Negative); PH,Urine 5.5 pH Units (5.0-8.0); Protein,Urine 30 mg/dL (Neg-Trace); Specific Gravity,Urine 1.027 (1.010-1.025); Squamous Epithelial Cell,Urine Moderate per hpf (None-Few); WBC,Urine 15-30 per hpf (0-3)
[2021-04-05 12:01] LABS: Basophils % 0.2 %; Eosinophils # 0.1 K/mcL (0.0-0.6); Eosinophils % 1.9 %; Hematocrit 46.9 % (35.3-44.9); Hemoglobin 14.7 g/dL (11.5-15.4); Immature Granulocytes % 0.5 % (0-4); Lymphocytes # 1.4 K/mcL (0.6-4.6); Lymphocytes % 22.4 %; Mean Corpuscular HGB Conc 31.3 g/dL (31.6-35.5); Mean Corpuscular Hemoglobin 30.2 pg (28.0-33.3); Mean Corpuscular Volume 96.3 fL (83.0-100.0); Mean Platelet Volume 9.2 fL (9.4-12.4); Monocytes # 0.6 K/mcL (0.0-1.3); Monocytes % 9.4 %; Neutrophils # 4.2 K/mcL (1.6-8.9); Platelet Count 162 K/mcL (140-400); Red Blood Count 4.87 M/mcL (3.82-4.97); Red Cell Distribution Width 15.2 % (11.5-14.5); Segmented Neutrophils % 65.6 %; White Blood Count 6.4 K/mcL (4.3-11.1)
[2021-04-05 12:21] LABS: BUN/Creatinine Ratio 17 (6-26); Blood Urea Nitrogen 12 mg/dL (8-23); Calcium 9.6 mg/dL (8.6-10.3); Carbon Dioxide 32 mEq/L (23-29); Chloride 100 mEq/L (98-107); Glucose 113 mg/dL (70-105); Osmolality,Calculated 291 (280-300); Potassium 3.5 mEq/L (3.5-5.1); Sodium 140 mEq/L (136-145); eGFR For African Americans > 60 (> 60); eGFR For Non-African Americans > 60 (> 60)
[2021-04-05 12:25] LABS: Adenovirus Not Detected (Not Detect); Bordetella Pertussis Not Detected (Not Detect); Chlamydophila pneumoniae Not Detected (Not Detect); Coronavirus 229E Not Detected (Not Detect); Coronavirus HKU1 Not Detected (Not Detect); Coronavirus NL63 Not Detected (Not Detect); Coronavirus OC43 Not Detected (Not Detect); Human Metapneumovirus Not Detected (Not Detect); Human Rhinovirus/Enterovirus Not Detected (Not Detect); Influenza A Subtype 2009 H1 Not Detected (Not Detect); Influenza B Not Detected (Not Detect); Mycoplasma pneumoniae Not Detected (Not Detect); Parainfluenza Virus 1 Not Detected (Not Detect); Parainfluenza Virus 2 Not Detected (Not Detect); Parainfluenza Virus 3 Not Detected (Not Detect); Parainfluenza Virus 4 Not Detected (Not Detect); Respiratory Syncytial Virus Not Detected (Not Detect); SARS-CoV-2 Not Detected (Not Detect)
[2021-04-05] MEDS ORDERED: cefTRIAXone 1,000 MG in Water for inj. (sterile) 10 ML IVP ONE (13:57)
[2021-04-05] MEDS ORDERED: Naloxone 0.4 MG/ML INJ IVP PRN (15:18)
[2021-04-05] MEDS ORDERED: Ondansetron 4 MG/2 ML VIAL IVP PRN (15:18)
[2021-04-05] MEDS ORDERED: Acetaminophen 325 MG TABLET PO PRN (15:18)
[2021-04-05] MEDS: levoFLOXacin 750 MG/150 ML 750 MG/150 ML BAG IVPB SCH (18:11)
[2021-04-05] MEDS ORDERED: D5% in Water 1,000 ML IVC PRN (18:30)
[2021-04-05] MEDS ORDERED: *HR* Dextrose 50 % in Water (Vial) 50 ML VIAL IVP PRN (18:30)
[2021-04-05] MEDS ORDERED: Dextrose Gel 15 GM/37.5 ML TUBE PO PRN ×2 (18:30)
[2021-04-05] MEDS: Ringers Solution, Lactated 1,000 ML IVC SCH (20:04)
[2021-04-05] MEDS: Insulin LISPRO 300 UNITS/3 ML VIAL SUBQ SCH (20:09)
[2021-04-06 07:52] LABS: Basophils % 0.3 %; Eosinophils # 0.2 K/mcL (0.0-0.6); Eosinophils % 2.6 %; Hematocrit 44.9 % (35.3-44.9); Hemoglobin 13.6 g/dL (11.5-15.4); Immature Granulocytes % 0.3 % (0-4); Lymphocytes # 1.3 K/mcL (0.6-4.6); Lymphocytes % 22.8 %; Mean Corpuscular HGB Conc 30.3 g/dL (31.6-35.5); Mean Corpuscular Hemoglobin 29.4 pg (28.0-33.3); Mean Corpuscular Volume 97.2 fL (83.0-100.0); Mean Platelet Volume 9.5 fL (9.4-12.4); Monocytes # 0.6 K/mcL (0.0-1.3); Monocytes % 10.5 %; Neutrophils # 3.7 K/mcL (1.6-8.9); Platelet Count 168 K/mcL (140-400); Red Blood Count 4.62 M/mcL (3.82-4.97); Red Cell Distribution Width 15.2 % (11.5-14.5); Segmented Neutrophils % 63.5 %; White Blood Count 5.8 K/mcL (4.3-11.1)
[2021-04-06 08:32] LABS: BUN/Creatinine Ratio 17 (6-26); Blood Urea Nitrogen 11 mg/dL (8-23); Calcium 9.4 mg/dL (8.6-10.3); Carbon Dioxide 29 mEq/L (23-29); Chloride 101 mEq/L (98-107); Glucose 97 mg/dL (70-105); Magnesium 1.8 mg/dL (1.6-2.6); Osmolality,Calculated 289 (280-300); Potassium 3.4 mEq/L (3.5-5.1); Sodium 140 mEq/L (136-145); eGFR For African Americans > 60 (> 60); eGFR For Non-African Americans > 60 (> 60)
[2021-04-06] MEDS: Ringers Solution, Lactated 1,000 ML IVC SCH (09:16)
[2021-04-06] MEDS: Insulin LISPRO 300 UNITS/3 ML VIAL SUBQ SCH ×4 (09:17→19:41)
[2021-04-06 11:04] LABS: Estimated Average Glucose 143 mg/dl; Hemoglobin A1C 6.6 %
[2021-04-06] MEDS: levoFLOXacin 750 MG/150 ML 750 MG/150 ML BAG IVPB SCH (15:56)
[2021-04-06] MEDS: carvediloL 6.25 MG TABLET PO SCH (18:00)
[2021-04-06] MEDS: Apixaban 5 MG TABLET PO SCH (19:40)
[2021-04-06] MEDS: Budesonide/Formoterol 160/4.5 1 PUFF INH IH SCH (20:10)
[2021-04-07 04:42] LABS: Basophils % 0.5 %
[2021-04-07 04:44] LABS: Eosinophils # 0.2 K/mcL (0.0-0.6); Eosinophils % 2.4 %; Hematocrit 45.1 % (35.3-44.9); Hemoglobin 13.7 g/dL (11.5-15.4); Immature Granulocytes % 0.6 % (0-4); Immature Platelets 4.2 % (1.1-6.1); Lymphocytes # 1.5 K/mcL (0.6-4.6); Lymphocytes % 24.4 %; Mean Corpuscular HGB Conc 30.4 g/dL (31.6-35.5); Mean Corpuscular Hemoglobin 29.7 pg (28.0-33.3); Mean Corpuscular Volume 97.6 fL (83.0-100.0); Mean Platelet Volume 10.7 fL (9.4-12.4); Monocytes # 0.8 K/mcL (0.0-1.3); Neutrophils # 3.8 K/mcL (1.6-8.9); Platelet Count 154 K/mcL (140-400); Red Blood Count 4.62 M/mcL (3.82-4.97); Red Cell Distribution Width 15.1 % (11.5-14.5); Segmented Neutrophils % 60.1 %; White Blood Count 6.3 K/mcL (4.3-11.1)
[2021-04-07 05:05] LABS: BUN/Creatinine Ratio 18 (6-26); Blood Urea Nitrogen 12 mg/dL (8-23); Calcium 9.3 mg/dL (8.6-10.3); Carbon Dioxide 31 mEq/L (23-29); Chloride 102 mEq/L (98-107); Glucose 139 mg/dL (70-105); Osmolality,Calculated 290 (280-300); Potassium 3.8 mEq/L (3.5-5.1); Sodium 139 mEq/L (136-145); eGFR For African Americans > 60 (> 60); eGFR For Non-African Americans > 60 (> 60)
[2021-04-07 05:20] LABS: Platelet Estimate Normal (Normal)
[2021-04-07 05:24] LABS: Thyroid Stimulating Hormone 11.296 mcIU/mL (0.340-5.600)
[2021-04-07] MEDS: Insulin LISPRO 300 UNITS/3 ML VIAL SUBQ SCH ×4 (07:40→21:19)
[2021-04-07] MEDS: carvediloL 6.25 MG TABLET PO SCH ×2 (07:43→17:17)
[2021-04-07] MEDS: Apixaban 5 MG TABLET PO SCH ×2 (07:43→21:18)
[2021-04-07] MEDS: Budesonide/Formoterol 160/4.5 1 PUFF INH IH SCH ×2 (07:53→23:23)
[2021-04-07] MEDS: levoFLOXacin 750 MG/150 ML 750 MG/150 ML BAG IVPB SCH (17:18)
[2021-04-08 05:24] LABS: Hematocrit 41.3 % (35.3-44.9); Hemoglobin 12.9 g/dL (11.5-15.4); Mean Corpuscular HGB Conc 31.2 g/dL (31.6-35.5); Mean Platelet Volume 9.3 fL (9.4-12.4); Platelet Count 166 K/mcL (140-400); White Blood Count 5.7 K/mcL (4.3-11.1)
[2021-04-08 05:49] LABS: BUN/Creatinine Ratio 16 (6-26); Blood Urea Nitrogen 11 mg/dL (8-23); Calcium 9.2 mg/dL (8.6-10.3); Carbon Dioxide 29 mEq/L (23-29); Chloride 103 mEq/L (98-107); Glucose 113 mg/dL (70-105); Osmolality,Calculated 286 (280-300); Potassium 3.7 mEq/L (3.5-5.1); Sodium 138 mEq/L (136-145); eGFR For African Americans > 60 (> 60); eGFR For Non-African Americans > 60 (> 60)
[2021-04-08] MEDS: Budesonide/Formoterol 160/4.5 1 PUFF INH IH SCH ×2 (07:50→20:05)
[2021-04-08] MEDS: Insulin LISPRO 300 UNITS/3 ML VIAL SUBQ SCH ×4 (09:18→21:27)
[2021-04-08] MEDS: Apixaban 5 MG TABLET PO SCH ×2 (09:39→21:23)
[2021-04-08] MEDS: carvediloL 6.25 MG TABLET PO SCH ×2 (09:40→17:11)
[2021-04-08] MEDS: levoFLOXacin 750 MG/150 ML 750 MG/150 ML BAG IVPB SCH (16:02)
[2021-04-08] MEDS: Preparation H Ointment 57 GM TUBE RC SCH (22:17)
[2021-04-09] MEDS: Insulin LISPRO 300 UNITS/3 ML VIAL SUBQ SCH ×4 (07:24→21:40)
[2021-04-09] MEDS: Budesonide/Formoterol 160/4.5 1 PUFF INH IH SCH ×2 (08:14→20:21)
[2021-04-09] MEDS: carvediloL 6.25 MG TABLET PO SCH ×2 (08:48→17:44)
[2021-04-09] MEDS: Apixaban 5 MG TABLET PO SCH ×2 (08:48→20:02)
[2021-04-09] MEDS: Preparation H Ointment 57 GM TUBE RC SCH ×2 (08:52→21:40)
[2021-04-09] MEDS: Thiamine (B-1) 100 MG TABLET PO SCH (12:00)
[2021-04-09] MEDS: levoFLOXacin 750 MG/150 ML 750 MG/150 ML BAG IVPB SCH (15:14)
[2021-04-09 16:45] LABS: Hemoglobin 13.4 g/dL (11.5-15.4); Mean Corpuscular HGB Conc 31.9 g/dL (31.6-35.5); Mean Platelet Volume 9.4 fL (9.4-12.4); Platelet Count 161 K/mcL (140-400); Red Blood Count 4.47 M/mcL (3.82-4.97); Red Cell Distribution Width 14.8 % (11.5-14.5); White Blood Count 5.7 K/mcL (4.3-11.1)
[2021-04-09 20:03] LABS: BUN/Creatinine Ratio 12 (6-26); Blood Urea Nitrogen 10 mg/dL (8-23); Calcium 9.2 mg/dL (8.6-10.3); Carbon Dioxide 29 mEq/L (23-29); Chloride 104 mEq/L (98-107); Glucose 100 mg/dL (70-105); Osmolality,Calculated 289 (280-300); Potassium 4.5 mEq/L (3.5-5.1); Sodium 140 mEq/L (136-145); eGFR For African Americans > 60 (> 60); eGFR For Non-African Americans > 60 (> 60)
[2021-04-10 05:19] LABS: BUN/Creatinine Ratio 15 (6-26); Blood Urea Nitrogen 12 mg/dL (8-23); Calcium 9.5 mg/dL (8.6-10.3); Carbon Dioxide 32 mEq/L (23-29); Chloride 103 mEq/L (98-107); Glucose 106 mg/dL (70-105); Osmolality,Calculated 290 (280-300); Potassium 3.7 mEq/L (3.5-5.1); Sodium 140 mEq/L (136-145); eGFR For African Americans > 60 (> 60); eGFR For Non-African Americans > 60 (> 60)
[2021-04-10] MEDS: Budesonide/Formoterol 160/4.5 1 PUFF INH IH SCH ×2 (07:57→20:01)
[2021-04-10] MEDS: Insulin LISPRO 300 UNITS/3 ML VIAL SUBQ SCH ×4 (08:53→20:30)
[2021-04-10] MEDS: Preparation H Ointment 57 GM TUBE RC SCH ×2 (08:57→20:30)
[2021-04-10] MEDS: Apixaban 5 MG TABLET PO SCH ×2 (09:04→20:30)
[2021-04-10] MEDS: Thiamine (B-1) 100 MG TABLET PO SCH (09:04)
[2021-04-10] MEDS: carvediloL 6.25 MG TABLET PO SCH ×2 (09:04→17:07)
[2021-04-10 09:45] LABS: Folate 21.2 ng/mL (3.0-16.0)
[2021-04-10 12:02] LABS: Hematocrit 42.6 % (35.3-44.9); Mean Corpuscular HGB Conc 30.5 g/dL (31.6-35.5); Mean Corpuscular Hemoglobin 29.5 pg (28.0-33.3); Mean Corpuscular Volume 96.6 fL (83.0-100.0); Mean Platelet Volume 9.3 fL (9.4-12.4); Platelet Count 171 K/mcL (140-400); Red Blood Count 4.41 M/mcL (3.82-4.97); White Blood Count 5.8 K/mcL (4.3-11.1)
[2021-04-10] MEDS: levoFLOXacin 750 MG/150 ML 750 MG/150 ML BAG IVPB SCH (14:50)
[2021-04-10] MEDS: polyethylene glycoL 3350 17 GM POWD.PACK PO SCH (14:51)
[2021-04-10] MEDS ORDERED: Bisacodyl 10 MG RECTAL SUPPOSITORY RC PRN (18:49)
[2021-04-11 06:16] LABS: Hematocrit 42.8 % (35.3-44.9); Hemoglobin 13.3 g/dL (11.5-15.4); Mean Corpuscular HGB Conc 31.1 g/dL (31.6-35.5); Mean Corpuscular Hemoglobin 29.7 pg (28.0-33.3); Mean Corpuscular Volume 95.5 fL (83.0-100.0); Mean Platelet Volume 9.3 fL (9.4-12.4); Platelet Count 158 K/mcL (140-400); Red Blood Count 4.48 M/mcL (3.82-4.97); Red Cell Distribution Width 14.9 % (11.5-14.5); White Blood Count 5.4 K/mcL (4.3-11.1)
[2021-04-11 06:40] LABS: BUN/Creatinine Ratio 17 (6-26); Blood Urea Nitrogen 11 mg/dL (8-23); Calcium 9.3 mg/dL (8.6-10.3); Carbon Dioxide 31 mEq/L (23-29); Chloride 102 mEq/L (98-107); Glucose 111 mg/dL (70-105); Osmolality,Calculated 286 (280-300); Potassium 3.7 mEq/L (3.5-5.1); Sodium 138 mEq/L (136-145); eGFR For African Americans > 60 (> 60); eGFR For Non-African Americans > 60 (> 60)
[2021-04-11] MEDS: Budesonide/Formoterol 160/4.5 1 PUFF INH IH SCH ×2 (07:27→21:39)
[2021-04-11] MEDS: Insulin LISPRO 300 UNITS/3 ML VIAL SUBQ SCH ×4 (08:16→21:29)
[2021-04-11] MEDS: Thiamine (B-1) 100 MG TABLET PO SCH (08:29)
[2021-04-11] MEDS: carvediloL 6.25 MG TABLET PO SCH ×2 (08:29→17:28)
[2021-04-11] MEDS: Apixaban 5 MG TABLET PO SCH ×2 (08:30→21:29)
[2021-04-11] MEDS: Preparation H Ointment 57 GM TUBE RC SCH ×2 (08:32→21:30)
[2021-04-11] MEDS: polyethylene glycoL 3350 17 GM POWD.PACK PO SCH (08:32)
[2021-04-11] MEDS: levoFLOXacin 750 MG/150 ML 750 MG/150 ML BAG IVPB SCH (15:25)
[2021-04-11 16:27] LABS: ABG Base Excess 4 mEq/L (-2 to 3); ABG HCO3 30 mEq/L (21-27); ABG Oxygen Saturation 94 % (95-98); ABG PCO2 52 mmHg (35-45); ABG PH 7.37 pH Units (7.32-7.45); ABG PO2 76 mmHg (85-104); ABG TCO2 32 mEq/L (20-26)
[2021-04-12 06:04] LABS: Hematocrit 43.6 % (35.3-44.9); Hemoglobin 13.4 g/dL (11.5-15.4); Mean Corpuscular HGB Conc 30.7 g/dL (31.6-35.5); Mean Corpuscular Hemoglobin 30.4 pg (28.0-33.3); Mean Corpuscular Volume 98.9 fL (83.0-100.0); Mean Platelet Volume 9.2 fL (9.4-12.4); Platelet Count 145 K/mcL (140-400); Red Blood Count 4.41 M/mcL (3.82-4.97); Red Cell Distribution Width 14.9 % (11.5-14.5); White Blood Count 4.9 K/mcL (4.3-11.1)
[2021-04-12 06:26] LABS: BUN/Creatinine Ratio 12 (6-26); Blood Urea Nitrogen 11 mg/dL (8-23); Carbon Dioxide 28 mEq/L (23-29); Chloride 106 mEq/L (98-107); Glucose 125 mg/dL (70-105); Osmolality,Calculated 291 (280-300); Sodium 140 mEq/L (136-145); eGFR For African Americans > 60 (> 60); eGFR For Non-African Americans > 60 (> 60)
[2021-04-12] MEDS: Insulin LISPRO 300 UNITS/3 ML VIAL SUBQ SCH ×4 (08:12→20:33)
[2021-04-12] MEDS: Apixaban 5 MG TABLET PO SCH ×2 (08:39→20:32)
[2021-04-12] MEDS: carvediloL 6.25 MG TABLET PO SCH ×2 (08:40→16:15)
[2021-04-12] MEDS: polyethylene glycoL 3350 17 GM POWD.PACK PO SCH ×2 (08:40→08:52)
[2021-04-12] MEDS: Thiamine (B-1) 100 MG TABLET PO SCH (08:40)
[2021-04-12] MEDS: Budesonide/Formoterol 160/4.5 1 PUFF INH IH SCH ×2 (09:58→20:18)
[2021-04-12 10:19] LABS: Calcium 9.1 mg/dL (8.6-10.3)
[2021-04-12] MEDS: Preparation H Ointment 57 GM TUBE RC SCH ×2 (10:56→20:35)
[2021-04-12] MEDS: levoFLOXacin 750 MG/150 ML 750 MG/150 ML BAG IVPB SCH (15:33)
[2021-04-13] MEDS: Insulin LISPRO 300 UNITS/3 ML VIAL SUBQ SCH (08:01)
[2021-04-13] MEDS: Budesonide/Formoterol 160/4.5 1 PUFF INH IH SCH (08:13)
[2021-04-13] MEDS: Thiamine (B-1) 100 MG TABLET PO SCH (09:50)
[2021-04-13] MEDS: Apixaban 5 MG TABLET PO SCH (09:50)
[2021-04-13] MEDS: polyethylene glycoL 3350 17 GM POWD.PACK PO SCH (11:22)
[2021-04-13] MEDS: Preparation H Ointment 57 GM TUBE RC SCH (11:22)
[2021-04-13 11:57] VITALS: BP 125/77; PULSE 98; TEMP 97.9; O2SAT 97
[2021-04-13] MEDS: carvediloL 6.25 MG TABLET PO SCH (12:30)
== END 2021-04-13 13:51 | disposition home health service (06) | DRG 689 ==
LOC: EMEROOARM 10:27 → 3BNU 10:27 → SUATTDRO 15:23 → 3BNU 16:55 → SUATTDRO 04-07 14:15
PROVIDERS: ADMIT Pharmacist; ATTEND Registered Nurse

== ENCOUNTER 2021-05-06 01:00 | Inpatient (IN) ==
[2021-05-06 01:53] LABS: Hematocrit 45.8 % (35.3-44.9); Hemoglobin 14.3 g/dL (11.5-15.4); Immature Granulocytes % 0.7 % (0-4); Lymphocytes % 20.1 %; Mean Corpuscular HGB Conc 31.2 g/dL (31.6-35.5); Mean Corpuscular Hemoglobin 29.7 pg (28.0-33.3); Mean Corpuscular Volume 95.2 fL (83.0-100.0); Platelet Count 266 K/mcL (140-400); Red Blood Count 4.81 M/mcL (3.82-4.97); Red Cell Distribution Width 13.4 % (11.5-14.5); Segmented Neutrophils % 69.5 %; White Blood Count 8.3 K/mcL (4.3-11.1)
[2021-05-06 01:54] LABS: Basophils % 0.4 %; Eosinophils # 0.2 K/mcL (0.0-0.6); Eosinophils % 1.8 %; Lymphocytes # 1.7 K/mcL (0.6-4.6); Monocytes # 0.6 K/mcL (0.0-1.3); Monocytes % 7.5 %; Neutrophils # 5.7 K/mcL (1.6-8.9)
[2021-05-06 02:06] LABS: Alanine Aminotransferase 25 Units/L (7-52); Albumin 3.7 g/dL (3.5-5.7); Alkaline Phosphatase 86 Units/L (34-104); Aspartate Amino Transferase 24 Units/L (13-39); BUN/Creatinine Ratio 17 (6-26); Bilirubin,Direct 0.1 mg/dL (0.0-0.2); Bilirubin,Indirect 0.4 mg/dL (0.0-1.0); Bilirubin,Total 0.5 mg/dL (0.3-1.0); Blood Urea Nitrogen 12 mg/dL (8-23); Carbon Dioxide 31 mEq/L (23-29); Chloride 100 mEq/L (98-107); Globulin 3.6 g/dL (2.4-3.5); Glucose 186 mg/dL (70-105); Lipase 73 Units/L (11-82); Osmolality,Calculated 297 (280-300); Potassium 3.8 mEq/L (3.5-5.1); Sodium 141 mEq/L (136-145); Total Protein 7.3 g/dL (6.4-8.9); Troponin I < 0.03 ng/mL (< 0.04); eGFR For African Americans > 60 (> 60); eGFR For Non-African Americans > 60 (> 60)
[2021-05-06] MEDS ORDERED: Ondansetron 4 MG/2 ML VIAL IVP ONE (02:21)
[2021-05-06] MEDS ORDERED: Acetaminophen 325 MG TABLET PO ONE (02:21)
[2021-05-06] MEDS ORDERED: Isovue-370 500 ML BOTTLE IVP ONE (02:37)
[2021-05-06 03:01] LABS: Bilirubin,Urine Negative (Negative); Blood,Urine Small (Negative); Calcium Oxalate Crystals,Urine Present per hpf; Clarity,Urine Clear (Clear); Color,Urine Yellow (Yellow); Glucose,Urine (UA) Normal (Normal); Hyaline Casts,Urine Few per lpf (None Seen); Ketones,Urine Negative (Negative); Leukocyte Esterase,Urine Small (Negative); Mucus,Urine Few per lpf (None-Few); Nitrite,Urine Negative (Negative); PH,Urine 5.5 pH Units (5.0-8.0); Protein,Urine Trace mg/dL (Neg-Trace); RBC,Urine 15-30 per hpf (0-3); Specific Gravity,Urine 1.027 (1.010-1.025); Squamous Epithelial Cell,Urine Few per hpf (None-Few)
[2021-05-06] MEDS ORDERED: Piperacillin/Tazobactam 3.375 GM in Water for inj. (sterile) 20 ML IVP ONE (05:34)
[2021-05-06] MEDS: Metoclopramide 10 MG/2 ML VIAL IVP STA ×2 (05:46→05:58)
[2021-05-06] MEDS ORDERED: Naloxone 0.4 MG/ML INJ IVP PRN (06:01)
[2021-05-06] MEDS ORDERED: Ondansetron 4 MG/2 ML VIAL IVP PRN (06:01)
[2021-05-06] MEDS ORDERED: Dextrose Gel 15 GM/37.5 ML TUBE PO PRN ×2 (06:33)
[2021-05-06] MEDS ORDERED: *HR* Dextrose 50 % in Water (Syg) 50 ML SYRINGE IVP PRN (06:33)
[2021-05-06] MEDS ORDERED: D5% in Water 1,000 ML IVC PRN (06:33)
[2021-05-06 07:05] LABS: Adenovirus Not Detected (Not Detect); Bordetella Pertussis Not Detected (Not Detect); Chlamydophila pneumoniae Not Detected (Not Detect); Coronavirus 229E Not Detected (Not Detect); Coronavirus HKU1 Not Detected (Not Detect); Coronavirus NL63 Not Detected (Not Detect); Coronavirus OC43 Not Detected (Not Detect); Human Metapneumovirus Not Detected (Not Detect); Human Rhinovirus/Enterovirus Not Detected (Not Detect); Influenza A Subtype 2009 H1 Not Detected (Not Detect); Influenza B Not Detected (Not Detect); Mycoplasma pneumoniae Not Detected (Not Detect); Parainfluenza Virus 1 Not Detected (Not Detect); Parainfluenza Virus 2 Not Detected (Not Detect); Parainfluenza Virus 3 Not Detected (Not Detect); Parainfluenza Virus 4 Not Detected (Not Detect); Respiratory Syncytial Virus Not Detected (Not Detect); SARS-CoV-2 Not Detected (Not Detect)
[2021-05-06] MEDS: Insulin LISPRO 300 UNITS/3 ML VIAL SUBQ SCH ×3 (10:36→16:48)
[2021-05-06 11:24] LABS: INR 1.2; Prothrombin Time 13.2 Seconds (9.4-12.1)
[2021-05-06] MEDS ORDERED: *HR* Heparin 5,000 UNIT/ML VIAL IVP PRN ×2 (11:46)
[2021-05-06] MEDS: *HR* OxyCODONE Immed Rel 5 MG TABLET PO PRN ×2 (12:45→23:13)
[2021-05-06] MEDS: Piperacillin/Tazobactam 3.375 GM in 0.9 % Sodium Chloride Mini Bag 100 ML IVPB SCH ×2 (12:47→20:24)
[2021-05-06] MEDS: Heparin 25,000UNIT/250ML 1/2NS 25,000 UNIT/250 ML IV.SOLN IVC SCH (13:55)
[2021-05-06] MEDS ORDERED: hydrOXYzine pamoate 25 MG CAPSULE PO PRN (14:57)
[2021-05-06] MEDS: carvediloL 6.25 MG TABLET PO SCH (15:16)
[2021-05-06] MEDS: Budesonide/Formoterol 160/4.5 1 PUFF INH IH SCH ×2 (15:28→21:01)
[2021-05-06] MEDS: Lactulose Oral Soln 20 GM/30 ML UDC PO SCH (20:27)
[2021-05-06 21:00] LABS: Heparin anti-factor XA UFH 1.14 IU/mL (0.30-0.70)
[2021-05-07] MEDS: Piperacillin/Tazobactam 3.375 GM in 0.9 % Sodium Chloride Mini Bag 100 ML IVPB SCH ×3 (04:45→21:50)
[2021-05-07 06:54] LABS: Basophils # 0.1 K/mcL (0.0-0.2); Basophils % 0.2 %; Hemoglobin 15.1 g/dL (11.5-15.4); Immature Granulocytes % 1.6 % (0-4); Lymphocytes # 1.6 K/mcL (0.6-4.6); Lymphocytes % 6.8 %; Mean Corpuscular HGB Conc 31.5 g/dL (31.6-35.5); Mean Corpuscular Hemoglobin 30.1 pg (28.0-33.3); Mean Corpuscular Volume 95.8 fL (83.0-100.0); Mean Platelet Volume 9.5 fL (9.4-12.4); Monocytes # 1.4 K/mcL (0.0-1.3); Monocytes % 5.8 %; Neutrophils # 20.6 K/mcL (1.6-8.9); Platelet Count 236 K/mcL (140-400); Red Blood Count 5.01 M/mcL (3.82-4.97); Red Cell Distribution Width 13.7 % (11.5-14.5); Segmented Neutrophils % 85.6 %; White Blood Count 24.1 K/mcL (4.3-11.1)
[2021-05-07 07:07] LABS: BUN/Creatinine Ratio 18 (6-26); Blood Urea Nitrogen 14 mg/dL (8-23); Calcium 10.1 mg/dL (8.6-10.3); Carbon Dioxide 30 mEq/L (23-29); Chloride 96 mEq/L (98-107); Glucose 125 mg/dL (70-105); Osmolality,Calculated 280 (280-300); Potassium 4.4 mEq/L (3.5-5.1); Sodium 134 mEq/L (136-145); eGFR For African Americans > 60 (> 60); eGFR For Non-African Americans > 60 (> 60)
[2021-05-07] MEDS: Budesonide/Formoterol 160/4.5 1 PUFF INH IH SCH ×2 (07:41→22:00)
[2021-05-07] MEDS: Lactulose Oral Soln 20 GM/30 ML UDC PO SCH ×2 (08:54→20:10)
[2021-05-07] MEDS: Furosemide 20 MG TABLET PO SCH (08:54)
[2021-05-07] MEDS: carvediloL 6.25 MG TABLET PO SCH ×2 (08:54→16:21)
[2021-05-07] MEDS: Heparin 25,000UNIT/250ML 1/2NS 25,000 UNIT/250 ML IV.SOLN IVC SCH ×2 (08:55→10:23)
[2021-05-07] MEDS: Insulin LISPRO 300 UNITS/3 ML VIAL SUBQ SCH ×3 (09:08→16:21)
[2021-05-07] MEDS: *HR* OxyCODONE Immed Rel 5 MG TABLET PO PRN ×2 (12:14→18:04)
[2021-05-07] MEDS ORDERED: Albumin 25% 25gram/100mL 25 GM/100 ML IV.SOLN IVPB ONE ×2 (19:54→22:45)
[2021-05-07] MEDS ORDERED: 0.9 % Sodium Chloride 250 ML IVC ONE (23:11)
[2021-05-08] MEDS: Piperacillin/Tazobactam 3.375 GM in 0.9 % Sodium Chloride Mini Bag 100 ML IVPB SCH (04:43)
[2021-05-08 04:59] LABS: Hematocrit 38.7 % (35.3-44.9); Mean Corpuscular HGB Conc 30.5 g/dL (31.6-35.5); Mean Corpuscular Hemoglobin 29.5 pg (28.0-33.3); Mean Corpuscular Volume 96.8 fL (83.0-100.0); Mean Platelet Volume 9.1 fL (9.4-12.4); Platelet Count 179 K/mcL (140-400); Red Cell Distribution Width 13.7 % (11.5-14.5); White Blood Count 16.7 K/mcL (4.3-11.1)
[2021-05-08 05:00] LABS: Hemoglobin 11.8 g/dL (11.5-15.4)
[2021-05-08 05:18] LABS: Calcium 9.2 mg/dL (8.6-10.3); Potassium 4.2 mEq/L (3.5-5.1)
[2021-05-08] MEDS: Heparin 25,000UNIT/250ML 1/2NS 25,000 UNIT/250 ML IV.SOLN IVC SCH ×2 (07:12→20:10)
[2021-05-08] MEDS ORDERED: Ringers Solution, Lactated 1,000 ML IVC ONE ×3 (07:18→10:24)
[2021-05-08] MEDS ORDERED: *HR* Propofol 200 MG/20 ML VIAL IVP ONE (07:20)
[2021-05-08] MEDS ORDERED: Lidocaine -MPF 4% 5 ML AMPUL ONE (07:20)
[2021-05-08] MEDS ORDERED: *HR* Succinylcholine 200 MG/10 ML VIAL IVP ONE (07:20)
[2021-05-08] MEDS ORDERED: Ondansetron 4 MG/2 ML VIAL ONE (07:20)
[2021-05-08] MEDS ORDERED: *HR* FentaNYL (PF) 100 MCG/2 ML VIAL ONE (07:20)
[2021-05-08] MEDS ORDERED: Lidocaine -MPF 2% 5 ML VIAL ONE (07:22)
[2021-05-08] MEDS ORDERED: *HR* Rocuronium Bromide 50 MG/5 ML VIAL ONE (07:23)
[2021-05-08] MEDS: carvediloL 6.25 MG TABLET PO SCH (08:00)
[2021-05-08] MEDS: Lactulose Oral Soln 20 GM/30 ML UDC PO SCH ×2 (08:07→20:45)
[2021-05-08] MEDS: Furosemide 20 MG TABLET PO SCH (08:08)
[2021-05-08] MEDS: Insulin LISPRO 300 UNITS/3 ML VIAL SUBQ SCH ×3 (08:08→18:20)
[2021-05-08] MEDS ORDERED: Ondansetron 4 MG/2 ML VIAL IVP PRN (08:14)
[2021-05-08] MEDS ORDERED: *HR* HYDROmorphone PF 0.5 MG/0.5 ML SYRINGE IVP PRN (08:14)
[2021-05-08] MEDS ORDERED: Isovue-300 50ML VIAL ONE (08:30)
[2021-05-08] MEDS: Budesonide/Formoterol 160/4.5 1 PUFF INH IH SCH ×2 (09:04→20:06)
[2021-05-08] MEDS ORDERED: Ringers Solution, Lactated 1,000 ML ONE (10:23)
[2021-05-08] MEDS ORDERED: Vancomycin 1,750 MG/517.5 ML IV.SOLN IVPB ONE (11:00)
[2021-05-08] MEDS ORDERED: Ertapenem 1,000 MG in 0.9 % Sodium Chloride Mini Bag 100 ML IVPB SCH (11:00)
[2021-05-08] MEDS ORDERED: 0.9 % Sodium Chloride 500 ML ONE (13:41)
[2021-05-08] MEDS: Meropenem 1,000 MG in 0.9 % Sodium Chloride Mini Bag 100 ML IVPB SCH (15:11)
[2021-05-08] MEDS ORDERED: *HR* Heparin 5,000 UNIT/ML VIAL IVP PRN ×2 (17:51)
[2021-05-09] MEDS: Meropenem 1,000 MG in 0.9 % Sodium Chloride Mini Bag 100 ML IVPB SCH ×3 (01:12→20:12)
[2021-05-09 01:55] LABS: Heparin anti-factor XA UFH 0.98 IU/mL (0.30-0.70)
[2021-05-09 01:56] LABS: INR 1.5; Prothrombin Time 16.9 Seconds (9.4-12.1)
[2021-05-09] MEDS ORDERED: Albumin 25% 25gram/100mL 25 GM/100 ML IV.SOLN IVPB ONE (02:03)
[2021-05-09 02:22] LABS: Activated Partial Thrombo Time 103.6 Seconds (26.0-36.0)
[2021-05-09 04:59] LABS: Hematocrit 32.6 % (35.3-44.9); Mean Corpuscular HGB Conc 31.3 g/dL (31.6-35.5); Mean Corpuscular Hemoglobin 29.6 pg (28.0-33.3); Mean Corpuscular Volume 94.5 fL (83.0-100.0); Mean Platelet Volume 9.7 fL (9.4-12.4); Platelet Count 168 K/mcL (140-400); Red Blood Count 3.45 M/mcL (3.82-4.97); Red Cell Distribution Width 13.9 % (11.5-14.5); White Blood Count 11.5 K/mcL (4.3-11.1)
[2021-05-09 05:20] LABS: Hemoglobin 10.2 g/dL (11.5-15.4)
[2021-05-09 06:09] LABS: Albumin 3.2 g/dL (3.5-5.7); Albumin/Globulin Ratio 1.3 (1.1-2.2); Bilirubin,Total 0.9 mg/dL (0.3-1.0); Calcium 8.2 mg/dL (8.6-10.3); Globulin 2.4 g/dL (2.4-3.5); Potassium 3.8 mEq/L (3.5-5.1); Total Protein 5.6 g/dL (6.4-8.9)
[2021-05-09] MEDS: Insulin LISPRO 300 UNITS/3 ML VIAL SUBQ SCH ×3 (08:44→17:54)
[2021-05-09] MEDS: Lactulose Oral Soln 20 GM/30 ML UDC PO SCH ×2 (08:45→20:29)
[2021-05-09] MEDS: Budesonide/Formoterol 160/4.5 1 PUFF INH IH SCH (10:07)
[2021-05-09] MEDS ORDERED: Ringers Solution, Lactated 1,000 ML IVC ONE (11:53)
[2021-05-09] MEDS: Heparin 25,000UNIT/250ML 1/2NS 25,000 UNIT/250 ML IV.SOLN IVC SCH (13:32)
[2021-05-10] MEDS: Budesonide/Formoterol 160/4.5 1 PUFF INH IH SCH ×3 (00:44→21:18)
[2021-05-10] MEDS: *HR* OxyCODONE Immed Rel 5 MG TABLET PO PRN (02:24)
[2021-05-10] MEDS: Heparin 25,000UNIT/250ML 1/2NS 25,000 UNIT/250 ML IV.SOLN IVC SCH (05:19)
[2021-05-10 06:12] LABS: Hematocrit 34.5 % (35.3-44.9); Hemoglobin 10.7 g/dL (11.5-15.4); Mean Corpuscular Hemoglobin 29.5 pg (28.0-33.3); Mean Platelet Volume 9.2 fL (9.4-12.4); Platelet Count 173 K/mcL (140-400); Red Blood Count 3.63 M/mcL (3.82-4.97); Red Cell Distribution Width 13.9 % (11.5-14.5); White Blood Count 7.8 K/mcL (4.3-11.1)
[2021-05-10 06:27] LABS: BUN/Creatinine Ratio 31 (6-26); Blood Urea Nitrogen 21 mg/dL (8-23); Calcium 8.8 mg/dL (8.6-10.3); Carbon Dioxide 31 mEq/L (23-29); Chloride 101 mEq/L (98-107); Glucose 74 mg/dL (70-105); Osmolality,Calculated 284 (280-300); Potassium 3.6 mEq/L (3.5-5.1); Sodium 136 mEq/L (136-145); eGFR For African Americans > 60 (> 60); eGFR For Non-African Americans > 60 (> 60)
[2021-05-10] MEDS: Insulin LISPRO 300 UNITS/3 ML VIAL SUBQ SCH ×3 (07:59→17:03)
[2021-05-10] MEDS ORDERED: Dextrose Gel 15 GM/37.5 ML TUBE PO PRN ×2 (08:15)
[2021-05-10] MEDS ORDERED: *HR* Dextrose 50 % in Water (Syg) 50 ML SYRINGE IVP PRN (08:15)
[2021-05-10] MEDS ORDERED: D5% in Water 1,000 ML IVC PRN (08:15)
[2021-05-10] MEDS: Lactulose Oral Soln 20 GM/30 ML UDC PO SCH ×2 (08:28→20:20)
[2021-05-10] MEDS: Meropenem 1,000 MG in 0.9 % Sodium Chloride Mini Bag 100 ML IVPB SCH ×2 (08:30→20:20)
[2021-05-10] MEDS ORDERED: Heparin 25,000UNIT/250ML 1/2NS 25,000 UNIT/250 ML IV.SOLN IVC SCH (09:15)
[2021-05-10] MEDS: Apixaban 5 MG TABLET PO SCH ×2 (12:47→20:20)
[2021-05-11] MEDS: *HR* OxyCODONE Immed Rel 5 MG TABLET PO PRN (01:35)
[2021-05-11 03:52] LABS: Hematocrit 36.1 % (35.3-44.9); Hemoglobin 11.2 g/dL (11.5-15.4); Mean Corpuscular Hemoglobin 29.2 pg (28.0-33.3); Mean Corpuscular Volume 94.3 fL (83.0-100.0); Platelet Count 190 K/mcL (140-400); Red Blood Count 3.83 M/mcL (3.82-4.97); Red Cell Distribution Width 13.8 % (11.5-14.5); White Blood Count 5.6 K/mcL (4.3-11.1)
[2021-05-11 04:05] LABS: BUN/Creatinine Ratio 22 (6-26); Blood Urea Nitrogen 13 mg/dL (8-23); Calcium 8.8 mg/dL (8.6-10.3); Carbon Dioxide 31 mEq/L (23-29); Chloride 102 mEq/L (98-107); Glucose 111 mg/dL (70-105); Magnesium 1.9 mg/dL (1.6-2.6); Osmolality,Calculated 287 (280-300); Phosphorous 1.7 mg/dL (2.7-4.5); Potassium 3.8 mEq/L (3.5-5.1); Sodium 138 mEq/L (136-145); eGFR For African Americans > 60 (> 60); eGFR For Non-African Americans > 60 (> 60)
[2021-05-11] MEDS: Insulin LISPRO 300 UNITS/3 ML VIAL SUBQ SCH ×3 (08:04→19:22)
[2021-05-11] MEDS: Meropenem 1,000 MG in 0.9 % Sodium Chloride Mini Bag 100 ML IVPB SCH ×2 (08:08→20:31)
[2021-05-11] MEDS: Apixaban 5 MG TABLET PO SCH ×2 (08:08→20:32)
[2021-05-11] MEDS: Lactulose Oral Soln 20 GM/30 ML UDC PO SCH ×2 (08:08→20:32)
[2021-05-11] MEDS: Budesonide/Formoterol 160/4.5 1 PUFF INH IH SCH ×2 (08:18→20:24)
[2021-05-11] MEDS ORDERED: Vancomycin 1,750 MG in 0.9 % Sodium Chloride 250 ML IVPB SCH (12:00)
[2021-05-11] MEDS: Vancomycin 1,500 MG/265 ML IV.SOLN IVPB SCH ×2 (14:33→23:57)
[2021-05-12] MEDS: *HR* OxyCODONE Immed Rel 5 MG TABLET PO PRN ×2 (01:02→19:35)
[2021-05-12 01:38] LABS: BUN/Creatinine Ratio 20 (6-26); Blood Urea Nitrogen 10 mg/dL (8-23); Calcium 8.6 mg/dL (8.6-10.3); Carbon Dioxide 32 mEq/L (23-29); Chloride 103 mEq/L (98-107); Glucose 131 mg/dL (70-105); Magnesium 1.9 mg/dL (1.6-2.6); Osmolality,Calculated 289 (280-300); Phosphorous 1.9 mg/dL (2.7-4.5); Potassium 3.9 mEq/L (3.5-5.1); Sodium 139 mEq/L (136-145); eGFR For African Americans > 60 (> 60); eGFR For Non-African Americans > 60 (> 60)
[2021-05-12 01:43] LABS: Hematocrit 35.8 % (35.3-44.9); Hemoglobin 11.1 g/dL (11.5-15.4); Mean Corpuscular Hemoglobin 29.7 pg (28.0-33.3); Mean Corpuscular Volume 95.7 fL (83.0-100.0); Mean Platelet Volume 8.9 fL (9.4-12.4); Platelet Count 195 K/mcL (140-400); Red Blood Count 3.74 M/mcL (3.82-4.97); Red Cell Distribution Width 13.8 % (11.5-14.5); White Blood Count 4.1 K/mcL (4.3-11.1)
[2021-05-12] MEDS: Budesonide/Formoterol 160/4.5 1 PUFF INH IH SCH ×2 (07:53→19:33)
[2021-05-12] MEDS: Insulin LISPRO 300 UNITS/3 ML VIAL SUBQ SCH ×3 (08:15→17:05)
[2021-05-12] MEDS: Lactulose Oral Soln 20 GM/30 ML UDC PO SCH ×2 (08:21→20:05)
[2021-05-12] MEDS: Meropenem 1,000 MG in 0.9 % Sodium Chloride Mini Bag 100 ML IVPB SCH ×2 (08:22→20:04)
[2021-05-12] MEDS: Apixaban 5 MG TABLET PO SCH ×2 (08:27→20:04)
[2021-05-12] MEDS ORDERED: Perflutren Lipid Microsphere 1.3 ML in 0.9 % Sodium Chloride 8.7 ML IVP PRN (12:07)
[2021-05-12] MEDS: Vancomycin 1,250 MG/262.5 ML IV.SOLN IVPB SCH (14:06)
[2021-05-13] MEDS: Vancomycin 1,250 MG/262.5 ML IV.SOLN IVPB SCH (01:55)
[2021-05-13 05:08] LABS: Hematocrit 36.2 % (35.3-44.9); Mean Corpuscular HGB Conc 30.4 g/dL (31.6-35.5); Mean Corpuscular Hemoglobin 29.3 pg (28.0-33.3); Mean Corpuscular Volume 96.5 fL (83.0-100.0); Mean Platelet Volume 8.2 fL (9.4-12.4); Platelet Count 193 K/mcL (140-400); Red Blood Count 3.75 M/mcL (3.82-4.97); Red Cell Distribution Width 14.1 % (11.5-14.5); White Blood Count 4.4 K/mcL (4.3-11.1)
[2021-05-13 05:30] LABS: BUN/Creatinine Ratio 17 (6-26); Blood Urea Nitrogen 8 mg/dL (8-23); Calcium 8.9 mg/dL (8.6-10.3); Carbon Dioxide 36 mEq/L (23-29); Chloride 99 mEq/L (98-107); Glucose 99 mg/dL (70-105); Osmolality,Calculated 286 (280-300); Potassium 3.8 mEq/L (3.5-5.1); Sodium 139 mEq/L (136-145); eGFR For African Americans > 60 (> 60); eGFR For Non-African Americans > 60 (> 60)
[2021-05-13] MEDS: Insulin LISPRO 300 UNITS/3 ML VIAL SUBQ SCH ×3 (08:25→16:27)
[2021-05-13] MEDS: Meropenem 1,000 MG in 0.9 % Sodium Chloride Mini Bag 100 ML IVPB SCH ×2 (08:34→20:18)
[2021-05-13] MEDS: Lactulose Oral Soln 20 GM/30 ML UDC PO SCH ×2 (08:35→20:24)
[2021-05-13] MEDS: Apixaban 5 MG TABLET PO SCH ×2 (08:35→20:19)
[2021-05-13] MEDS: Furosemide 20 MG TABLET PO SCH (08:35)
[2021-05-13] MEDS: Budesonide/Formoterol 160/4.5 1 PUFF INH IH SCH ×2 (10:39→20:08)
[2021-05-13] MEDS: *HR* OxyCODONE Immed Rel 5 MG TABLET PO PRN (13:05)
[2021-05-14] MEDS: Vancomycin 2,000 MG/520 ML IV.SOLN IVPB SCH (01:54)
[2021-05-14] MEDS: *HR* OxyCODONE Immed Rel 5 MG TABLET PO PRN (06:20)
[2021-05-14] MEDS: Budesonide/Formoterol 160/4.5 1 PUFF INH IH SCH ×2 (08:15→20:36)
[2021-05-14] MEDS: Apixaban 5 MG TABLET PO SCH ×2 (09:26→20:48)
[2021-05-14] MEDS: Furosemide 20 MG TABLET PO SCH (09:26)
[2021-05-14] MEDS: Lactulose Oral Soln 20 GM/30 ML UDC PO SCH ×2 (09:27→20:47)
[2021-05-14] MEDS: Meropenem 1,000 MG in 0.9 % Sodium Chloride Mini Bag 100 ML IVPB SCH ×2 (09:28→20:47)
[2021-05-14] MEDS: Insulin LISPRO 300 UNITS/3 ML VIAL SUBQ SCH ×3 (09:38→20:49)
[2021-05-15] MEDS: Vancomycin 2,000 MG/520 ML IV.SOLN IVPB SCH (00:24)
[2021-05-15] MEDS: *HR* OxyCODONE Immed Rel 5 MG TABLET PO PRN ×2 (00:25→05:42)
[2021-05-15] MEDS: Insulin LISPRO 300 UNITS/3 ML VIAL SUBQ SCH ×3 (09:14→16:55)
[2021-05-15] MEDS: Meropenem 1,000 MG in 0.9 % Sodium Chloride Mini Bag 100 ML IVPB SCH (09:16)
[2021-05-15] MEDS: Apixaban 5 MG TABLET PO SCH ×2 (09:16→20:55)
[2021-05-15] MEDS: Furosemide 20 MG TABLET PO SCH (09:16)
[2021-05-15] MEDS: Lactulose Oral Soln 20 GM/30 ML UDC PO SCH ×3 (09:17→20:55)
[2021-05-15 10:29] LABS: BUN/Creatinine Ratio 17 (6-26); Blood Urea Nitrogen 8 mg/dL (8-23); Calcium 8.9 mg/dL (8.6-10.3); Carbon Dioxide 40 mEq/L (23-29); Chloride 97 mEq/L (98-107); Glucose 117 mg/dL (70-105); Osmolality,Calculated 287 (280-300); Sodium 139 mEq/L (136-145); eGFR For African Americans > 60 (> 60); eGFR For Non-African Americans > 60 (> 60)
[2021-05-15] MEDS: Budesonide/Formoterol 160/4.5 1 PUFF INH IH SCH ×2 (11:08→19:37)
[2021-05-15 11:36] LABS: VBG HCO3 37 mEq/L (21-27); VBG PCO2 68 mmHg (41-51); VBG PH 7.35 pH Units (7.32-7.42); VBG PO2 57 mmHg (25-50)
[2021-05-15] MEDS: *HR* Metformin 500 MG TABLET PO SCH (18:25)
[2021-05-16 00:52] LABS: Hematocrit 38.2 % (35.3-44.9); Hemoglobin 11.5 g/dL (11.5-15.4); Mean Corpuscular HGB Conc 30.1 g/dL (31.6-35.5); Mean Corpuscular Volume 96.5 fL (83.0-100.0); Mean Platelet Volume 8.2 fL (9.4-12.4); Platelet Count 207 K/mcL (140-400); Red Blood Count 3.96 M/mcL (3.82-4.97); White Blood Count 5.1 K/mcL (4.3-11.1)
[2021-05-16 01:11] LABS: BUN/Creatinine Ratio 16 (6-26); Blood Urea Nitrogen 9 mg/dL (8-23); Carbon Dioxide 39 mEq/L (23-29); Chloride 96 mEq/L (98-107); Glucose 114 mg/dL (70-105); Osmolality,Calculated 284 (280-300); Sodium 137 mEq/L (136-145); eGFR For African Americans > 60 (> 60); eGFR For Non-African Americans > 60 (> 60)
[2021-05-16] MEDS: Vancomycin 2,000 MG/520 ML IV.SOLN IVPB SCH (01:44)
[2021-05-16] MEDS: Budesonide/Formoterol 160/4.5 1 PUFF INH IH SCH ×2 (10:49→20:06)
[2021-05-16] MEDS: Lactulose Oral Soln 20 GM/30 ML UDC PO SCH ×2 (11:01→15:49)
[2021-05-16] MEDS: Apixaban 5 MG TABLET PO SCH (11:02)
[2021-05-16] MEDS: Furosemide 20 MG TABLET PO SCH (11:02)
[2021-05-16] MEDS: Insulin LISPRO 300 UNITS/3 ML VIAL SUBQ SCH ×3 (11:44→16:42)
[2021-05-16] MEDS: *HR* Metformin 500 MG TABLET PO SCH (16:40)
[2021-05-16] MEDS: *HR* OxyCODONE Immed Rel 5 MG TABLET PO PRN (16:41)
[2021-05-16 20:08] VITALS: O2SAT 95
[2021-05-16 20:10] VITALS: BP 114/66; PULSE 57; TEMP 98.3
[2021-05-17] MEDS ORDERED: Vancomycin 1,500 MG/265 ML IV.SOLN IVPB SCH (06:00)
== END 2021-05-16 20:50 | disposition home health service (06) | DRG 444 ==
LOC: EMEROOARM 01:00 → 3ANU 01:00 → SUATTDRO 06:25 → 3ANU 08:00 → SUATTDRO 05-07 11:10 → 2NNU 05-09 00:51 → 3ANU 05-10 01:49
PROVIDERS: ADMIT Internal Medicine; ATTEND Internal Medicine

== ENCOUNTER 2022-02-12 17:52 | Inpatient (IN) ==
[2022-02-12] MEDS ORDERED: Ipratropium/Albuterol Neb 3 ML IH ONE (18:47)
[2022-02-12 18:57] LABS: Bacteria,Urine Moderate per hpf (None-Few); Bilirubin,Urine Negative (Negative); Blood,Urine Moderate (Negative); Clarity,Urine Turbid (Clear); Color,Urine Yellow (Yellow); Glucose,Urine (UA) Normal (Normal); Hyaline Casts,Urine Few per lpf (None Seen); Ketones,Urine Trace mg/dL (Negative); Leukocyte Esterase,Urine Large (Negative); Mucus,Urine Few per lpf (None-Few); Nitrite,Urine Positive (Negative); Protein,Urine Trace mg/dL (Neg-Trace); RBC,Urine 30-50 per hpf (0-3); Specific Gravity,Urine 1.024 (1.010-1.025); Squamous Epithelial Cell,Urine Few per hpf (None-Few); Urobilinogen,Urine Normal (Normal); WBC,Urine TNTC per hpf (0-3)
[2022-02-12 19:03] LABS: Alanine Aminotransferase 7 Units/L (7-52); Albumin 2.6 g/dL (3.5-5.7); Albumin/Globulin Ratio 1.2 (1.1-2.2); Alkaline Phosphatase 39 Units/L (34-104); Aspartate Amino Transferase 24 Units/L (13-39); BUN/Creatinine Ratio 29 (6-26); Bilirubin,Total 0.5 mg/dL (0.3-1.0); Blood Urea Nitrogen 9 mg/dL (8-23); Calcium 6.2 mg/dL (8.6-10.3); Carbon Dioxide 28 mEq/L (23-29); Chloride 102 mEq/L (98-107); Globulin 2.2 g/dL (2.4-3.5); Glucose 100 mg/dL (70-105); Lipase 21 Units/L (11-82); Magnesium 1.4 mg/dL (1.6-2.6); Osmolality,Calculated 273 (280-300); Potassium 4.5 mEq/L (3.5-5.1); Sodium 132 mEq/L (136-145); Total Protein 4.8 g/dL (6.4-8.9); Troponin I < 0.03 ng/mL (< 0.04); eGFR For African Americans > 60 (> 60); eGFR For Non-African Americans > 60 (> 60)
[2022-02-12] MEDS ORDERED: cefTRIAXone 2,000 MG in 0.9 % Sodium Chloride 20 ML IVP ONE (19:26)
[2022-02-12 19:34] LABS: Basophils % 0.3 %; Eosinophils # 0.1 K/mcL (0.0-0.6); Eosinophils % 1.7 %; Hematocrit 37.8 % (35.3-44.9); Immature Granulocytes % 0.8 % (0-4); Lymphocytes # 0.9 K/mcL (0.6-4.6); Lymphocytes % 13.5 %; Mean Corpuscular HGB Conc 31.7 g/dL (31.6-35.5); Mean Corpuscular Hemoglobin 30.3 pg (28.0-33.3); Mean Corpuscular Volume 95.5 fL (83.0-100.0); Mean Platelet Volume 10.4 fL (9.4-12.4); Monocytes # 0.6 K/mcL (0.0-1.3); Monocytes % 9.1 %; Neutrophils # 4.9 K/mcL (1.6-8.9); Nucleated Red Blood Cells 0.5 /100 WBC (0); Platelet Count 159 K/mcL (140-400); Red Blood Count 3.96 M/mcL (3.82-4.97); Red Cell Distribution Width 13.4 % (11.5-14.5); Segmented Neutrophils % 74.6 %; White Blood Count 6.5 K/mcL (4.3-11.1)
[2022-02-12] MEDS ORDERED: Ertapenem 1,000 MG in 0.9 % Sodium Chloride Mini Bag 100 ML IVPB ONE (21:08)
[2022-02-12] MEDS ORDERED: Ondansetron ODT 4 MG TAB.RAPDIS SL PRN (21:30)
[2022-02-12] MEDS ORDERED: Melatonin 3 MG TABLET PO PRN (21:30)
[2022-02-12] MEDS ORDERED: Naloxone 0.4 MG/ML INJ IVP PRN (21:30)
[2022-02-12] MEDS ORDERED: *HR* Dextrose 50 % in Water (Syg) 50 ML SYRINGE IVP PRN (21:59)
[2022-02-12] MEDS ORDERED: D5% in Water 1,000 ML IVC PRN (21:59)
[2022-02-12] MEDS ORDERED: Dextrose Gel 15 GM/37.5 ML TUBE PO PRN ×2 (21:59)
[2022-02-12] MEDS ORDERED: 0.9 % Sodium Chloride 1,000 ML IVC SCH (22:00)
[2022-02-12] MEDS ORDERED: Calcium Gluconate 1gm/50mL 1 GM/50 ML BAG IVPB ONE (22:03)
[2022-02-12] MEDS: Budesonide/Formoterol 160/4.5 1 PUFF INH IH SCH (22:35)
[2022-02-13 00:40] LABS: Albumin 3.3 g/dL (3.5-5.7); Albumin/Globulin Ratio 1.1 (1.1-2.2); Bilirubin,Direct 0.1 mg/dL (0.0-0.2); Bilirubin,Indirect 0.2 mg/dL (0.0-1.0); Bilirubin,Total 0.3 mg/dL (0.3-1.0); Globulin 3.1 g/dL (2.4-3.5); Total Protein 6.4 g/dL (6.4-8.9)
[2022-02-13 02:40] LABS: Influenza A PCR Negative (Negative); Influenza B PCR Negative (Negative); Resp. Syncytial Virus PCR Negative (Negative)
[2022-02-13 02:41] LABS: SARS-CoV-2 by PCR (In House) Negative (Negative)
[2022-02-13] MEDS: Ipratropium/Albuterol Neb 3 ML IH SCH ×4 (03:43→21:47)
[2022-02-13] MEDS: Insulin LISPRO 300 UNITS/3 ML VIAL SUBQ SCH ×3 (07:38→16:22)
[2022-02-13 08:24] LABS: Hematocrit 41.9 % (35.3-44.9); Hemoglobin 12.9 g/dL (11.5-15.4); Mean Corpuscular HGB Conc 30.8 g/dL (31.6-35.5); Mean Corpuscular Hemoglobin 29.8 pg (28.0-33.3); Mean Corpuscular Volume 96.8 fL (83.0-100.0); Mean Platelet Volume 8.6 fL (9.4-12.4); Platelet Count 175 K/mcL (140-400); Red Blood Count 4.33 M/mcL (3.82-4.97); Red Cell Distribution Width 13.3 % (11.5-14.5); White Blood Count 6.4 K/mcL (4.3-11.1)
[2022-02-13 08:32] LABS: VBG HCO3 36 mEq/L (21-27); VBG PCO2 68 mmHg (41-51); VBG PH 7.33 pH Units (7.32-7.42); VBG PO2 113 mmHg (25-50)
[2022-02-13] MEDS ORDERED: *HR* Heparin 5,000 UNIT/ML VIAL IVP PRN ×2 (08:40)
[2022-02-13] MEDS ORDERED: Heparin 25,000UNIT/250ML 1/2NS 25,000 UNIT/250 ML IV.SOLN IVC SCH (08:45)
[2022-02-13 08:58] LABS: Phosphorous 3.2 mg/dL (2.7-4.5)
[2022-02-13] MEDS ORDERED: Apixaban 5 MG TABLET PO SCH (09:00)
[2022-02-13] MEDS: Ertapenem 1,000 MG in 0.9 % Sodium Chloride Mini Bag 100 ML IVPB SCH (10:03)
[2022-02-13] MEDS: Heparin 25,000UNIT/250ML 1/2NS 25,000 UNIT/250 ML IV.SOLN IVC SCH (10:12)
[2022-02-13 10:34] LABS: Estimated Average Glucose 117 mg/dl; Hemoglobin A1C 5.7 %
[2022-02-13] MEDS: Budesonide/Formoterol 160/4.5 1 PUFF INH IH SCH ×2 (11:10→21:47)
[2022-02-13] MEDS ORDERED: 0.9 % Sodium Chloride 1,000 ML IVC ONE (11:24)
[2022-02-13] MEDS ORDERED: 0.9 % Sodium Chloride 1,000 ML IVC SCH (11:30)
[2022-02-13] MEDS ORDERED: Promethazine 6.25 MG in Water for inj. (sterile) 20 ML IVPB PRN (12:01)
[2022-02-13] MEDS ORDERED: *HR* FentaNYL (PF) 100 MCG/2 ML VIAL IVP PRN (12:01)
[2022-02-13] MEDS ORDERED: Ondansetron 4 MG/2 ML VIAL IVP PRN (12:01)
[2022-02-13 12:58] LABS: Hematocrit 39.7 % (35.3-44.9); Hemoglobin 12.2 g/dL (11.5-15.4); Mean Corpuscular HGB Conc 30.7 g/dL (31.6-35.5); Mean Corpuscular Volume 97.5 fL (83.0-100.0); Mean Platelet Volume 8.6 fL (9.4-12.4); Platelet Count 161 K/mcL (140-400); Red Blood Count 4.07 M/mcL (3.82-4.97); Red Cell Distribution Width 13.2 % (11.5-14.5); White Blood Count 7.7 K/mcL (4.3-11.1)
[2022-02-13 13:06] LABS: Heparin anti-factor XA UFH 0.98 IU/mL (0.30-0.70)
[2022-02-13 13:07] LABS: INR 1.1; Prothrombin Time 12.5 Seconds (9.4-12.1)
[2022-02-13] MEDS ORDERED: Acetaminophen 325 MG TABLET PO PRN (15:43)
[2022-02-14 01:47] LABS: Basophils % 0.5 %; Eosinophils # 0.1 K/mcL (0.0-0.6); Eosinophils % 1.1 %; Hematocrit 40.7 % (35.3-44.9); Hemoglobin 12.5 g/dL (11.5-15.4); Immature Granulocytes % 0.5 % (0-4); Lymphocytes # 0.7 K/mcL (0.6-4.6); Lymphocytes % 10.8 %; Mean Corpuscular HGB Conc 30.7 g/dL (31.6-35.5); Mean Corpuscular Hemoglobin 30.1 pg (28.0-33.3); Mean Corpuscular Volume 98.1 fL (83.0-100.0); Mean Platelet Volume 8.9 fL (9.4-12.4); Monocytes # 0.6 K/mcL (0.0-1.3); Monocytes % 8.6 %; Neutrophils # 5.1 K/mcL (1.6-8.9); Platelet Count 177 K/mcL (140-400); Red Blood Count 4.15 M/mcL (3.82-4.97); Red Cell Distribution Width 13.3 % (11.5-14.5); Segmented Neutrophils % 78.5 %; White Blood Count 6.5 K/mcL (4.3-11.1)
[2022-02-14 02:05] LABS: BUN/Creatinine Ratio 28 (6-26); Blood Urea Nitrogen 11 mg/dL (8-23); Calcium 9.1 mg/dL (8.6-10.3); Carbon Dioxide 32 mEq/L (23-29); Chloride 92 mEq/L (98-107); Glucose 97 mg/dL (70-105); Magnesium 1.9 mg/dL (1.6-2.6); Osmolality,Calculated 269 (280-300); Phosphorous 3.1 mg/dL (2.7-4.5); Potassium 4.6 mEq/L (3.5-5.1); Sodium 130 mEq/L (136-145); eGFR For African Americans > 60 (> 60); eGFR For Non-African Americans > 60 (> 60)
[2022-02-14] MEDS: Ipratropium/Albuterol Neb 3 ML IH SCH ×4 (03:27→21:46)
[2022-02-14] MEDS: Heparin 25,000UNIT/250ML 1/2NS 25,000 UNIT/250 ML IV.SOLN IVC SCH ×2 (03:50→23:25)
[2022-02-14] MEDS: Insulin LISPRO 300 UNITS/3 ML VIAL SUBQ SCH ×3 (07:12→17:21)
[2022-02-14] MEDS: Ertapenem 1,000 MG in 0.9 % Sodium Chloride Mini Bag 100 ML IVPB SCH (07:57)
[2022-02-14] MEDS: carvediloL 6.25 MG TABLET PO SCH ×2 (07:57→17:21)
[2022-02-14] MEDS: Budesonide/Formoterol 160/4.5 1 PUFF INH IH SCH ×2 (09:41→21:46)
[2022-02-14] MEDS ORDERED: Perflutren Lipid Microsphere 1.3 ML in 0.9 % Sodium Chloride 8.7 ML IVP PRN (12:42)
[2022-02-14] MEDS ORDERED: hydrOXYzine pamoate 25 MG CAPSULE PO PRN (14:37)
[2022-02-14] MEDS ORDERED: *HR* FentaNYL (PF) 100 MCG/2 ML VIAL ONE (14:43)
[2022-02-14] MEDS ORDERED: *HR* Propofol 200 MG/20 ML VIAL IVP ONE (14:43)
[2022-02-14] MEDS ORDERED: Lidocaine -MPF 2% 5 ML VIAL ONE (14:43)
[2022-02-14] MEDS ORDERED: *HR* Succinylcholine 200 MG/10 ML VIAL IVP ONE (14:44)
[2022-02-14] MEDS ORDERED: *HR* FentaNYL (PF) 100 MCG/2 ML VIAL IVP PRN (15:05)
[2022-02-14] MEDS ORDERED: Ondansetron 4 MG/2 ML VIAL ONE (15:28)
[2022-02-14] MEDS ORDERED: Indomethacin 50 MG SUPP.RECT RC ONE (16:16)
[2022-02-15] MEDS: Ipratropium/Albuterol Neb 3 ML IH SCH ×4 (04:03→22:04)
[2022-02-15] MEDS ORDERED: *HR* FentaNYL (PF) 100 MCG/2 ML VIAL ONE (07:23)
[2022-02-15] MEDS ORDERED: *HR* Propofol 200 MG/20 ML VIAL IVP ONE (07:23)
[2022-02-15] MEDS ORDERED: Ondansetron 4 MG/2 ML VIAL ONE (07:26)
[2022-02-15] MEDS ORDERED: *HR* Rocuronium Bromide 50 MG/5 ML VIAL ONE (07:26)
[2022-02-15] MEDS ORDERED: Lidocaine -MPF 2% 5 ML VIAL ONE (07:26)
[2022-02-15] MEDS ORDERED: Lidocaine HCL 4 ML Topical Solution (Laryng-O-Jet Kit Sterile Pak) TP ONE (07:26)
[2022-02-15] MEDS: Insulin LISPRO 300 UNITS/3 ML VIAL SUBQ SCH ×3 (07:48→17:04)
[2022-02-15] MEDS: carvediloL 6.25 MG TABLET PO SCH ×2 (07:48→17:04)
[2022-02-15 09:10] LABS: ABG Base Excess 7 mEq/L (-2 to 3); ABG HCO3 38 mEq/L (21-27); ABG Oxygen Saturation 98 % (95-98); ABG PCO2 85 mmHg (35-45); ABG PH 7.25 pH Units (7.32-7.45); ABG PO2 128 mmHg (85-104); ABG TCO2 40 mEq/L (20-26); Blood Gas Modality avaps; Blood Gas Pressure Support 12 cm H2O; Blood Gas VT 400 cc
[2022-02-15 09:18] LABS: BUN/Creatinine Ratio 53 (6-26); Blood Urea Nitrogen 24 mg/dL (8-23); Carbon Dioxide 34 mEq/L (23-29); Chloride 92 mEq/L (98-107); Glucose 104 mg/dL (70-105); Osmolality,Calculated 276 (280-300); Phosphorous 3.8 mg/dL (2.7-4.5); Sodium 131 mEq/L (136-145); eGFR For African Americans > 60 (> 60); eGFR For Non-African Americans > 60 (> 60)
[2022-02-15] MEDS: Ertapenem 1,000 MG in 0.9 % Sodium Chloride Mini Bag 100 ML IVPB SCH (09:40)
[2022-02-15 10:23] LABS: Basophils % 0.2 %; Eosinophils % 0.4 %; Hematocrit 40.6 % (35.3-44.9); Immature Granulocytes % 0.8 % (0-4); Immature Platelets 1.9 % (1.1-6.1); Lymphocytes # 0.7 K/mcL (0.6-4.6); Lymphocytes % 6.9 %; Mean Corpuscular Volume 93.8 fL (83.0-100.0); Mean Platelet Volume 9.4 fL (9.4-12.4); Monocytes # 0.5 K/mcL (0.0-1.3); Monocytes % 5.3 %; Neutrophils # 8.2 K/mcL (1.6-8.9); Nucleated Red Blood Cells 0.2 /100 WBC (0); Platelet Count 209 K/mcL (140-400); Red Blood Count 4.33 M/mcL (3.82-4.97); Red Cell Distribution Width 13.4 % (11.5-14.5); Segmented Neutrophils % 86.4 %; White Blood Count 9.5 K/mcL (4.3-11.1)
[2022-02-15] MEDS: Budesonide/Formoterol 160/4.5 1 PUFF INH IH SCH ×2 (10:24→22:04)
[2022-02-15 10:32] LABS: ABG Base Excess 5 mEq/L (-2 to 3); ABG HCO3 35 mEq/L (21-27); ABG Oxygen Saturation 96 % (95-98); ABG PCO2 77 mmHg (35-45); ABG PH 7.27 pH Units (7.32-7.45); ABG PO2 94 mmHg (85-104); ABG TCO2 38 mEq/L (20-26); Blood Gas Modality avaps; Blood Gas Pressure Support 12 cm H2O; Blood Gas VT 450 cc
[2022-02-15] MEDS ORDERED: *HR* Dextrose 50 % in Water (Syg) 50 ML SYRINGE IVP ONE (10:42)
[2022-02-15] MEDS ORDERED: Insulin Human Regular 5 UNIT in 0.9 % Sodium Chloride 10 ML IV ONE (10:44)
[2022-02-15 11:23] LABS: Alanine Aminotransferase 39 Units/L (7-52); Albumin 3.5 g/dL (3.5-5.7); Albumin/Globulin Ratio 1.2 (1.1-2.2); Alkaline Phosphatase 163 Units/L (34-104); Aspartate Amino Transferase 42 Units/L (13-39); Bilirubin,Direct 0.1 mg/dL (0.0-0.2); Bilirubin,Indirect 0.4 mg/dL (0.0-1.0); Bilirubin,Total 0.5 mg/dL (0.3-1.0); Total Protein 6.5 g/dL (6.4-8.9)
[2022-02-15] MEDS: Heparin 25,000UNIT/250ML 1/2NS 25,000 UNIT/250 ML IV.SOLN IVC SCH (11:23)
[2022-02-15] MEDS ORDERED: Furosemide 40 MG/4 ML VIAL IVP ONE (16:26)
[2022-02-15 16:53] LABS: ABG Base Excess 5 mEq/L (-2 to 3); ABG HCO3 34 mEq/L (21-27); ABG Oxygen Saturation 97 % (95-98); ABG PCO2 64 mmHg (35-45); ABG PH 7.33 pH Units (7.32-7.45); ABG PO2 100 mmHg (85-104); ABG TCO2 36 mEq/L (20-26); Blood Gas Modality avaps; Blood Gas Pressure Support 12 cm H2O; Blood Gas VT 500 cc
[2022-02-16 03:26] LABS: Alanine Aminotransferase 32 Units/L (7-52); Albumin 3.7 g/dL (3.5-5.7); Albumin/Globulin Ratio 1.1 (1.1-2.2); Alkaline Phosphatase 147 Units/L (34-104); Aspartate Amino Transferase 25 Units/L (13-39); BUN/Creatinine Ratio 52 (6-26); Bilirubin,Direct 0.1 mg/dL (0.0-0.2); Bilirubin,Indirect 0.4 mg/dL (0.0-1.0); Bilirubin,Total 0.5 mg/dL (0.3-1.0); Blood Urea Nitrogen 29 mg/dL (8-23); Calcium 9.7 mg/dL (8.6-10.3); Carbon Dioxide 34 mEq/L (23-29); Chloride 91 mEq/L (98-107); Globulin 3.4 g/dL (2.4-3.5); Glucose 127 mg/dL (70-105); Osmolality,Calculated 287 (280-300); Potassium 3.6 mEq/L (3.5-5.1); Sodium 135 mEq/L (136-145); Total Protein 7.1 g/dL (6.4-8.9); eGFR For African Americans > 60 (> 60); eGFR For Non-African Americans > 60 (> 60)
[2022-02-16] MEDS: Ipratropium/Albuterol Neb 3 ML IH SCH ×4 (03:44→22:16)
[2022-02-16] MEDS: Heparin 25,000UNIT/250ML 1/2NS 25,000 UNIT/250 ML IV.SOLN IVC SCH (04:30)
[2022-02-16] MEDS ORDERED: *HR* Dextrose 50 % in Water (Syg) 50 ML SYRINGE IVP PRN (07:21)
[2022-02-16] MEDS: Insulin LISPRO 300 UNITS/3 ML VIAL SUBQ SCH ×4 (07:21→17:15)
[2022-02-16] MEDS ORDERED: *HR* Heparin 5,000 UNIT/ML VIAL IVP PRN ×2 (07:21)
[2022-02-16] MEDS ORDERED: Dextrose Gel 15 GM/37.5 ML TUBE PO PRN ×2 (07:21)
[2022-02-16] MEDS: carvediloL 6.25 MG TABLET PO SCH ×3 (07:21→16:41)
[2022-02-16] MEDS ORDERED: Heparin 25,000UNIT/250ML 1/2NS 25,000 UNIT/250 ML IV.SOLN IVC SCH (07:21)
[2022-02-16] MEDS ORDERED: Perflutren Lipid Microsphere 1.3 ML in 0.9 % Sodium Chloride 8.7 ML IVP PRN (07:21)
[2022-02-16] MEDS ORDERED: Naloxone 0.4 MG/ML INJ IVP PRN (07:21)
[2022-02-16] MEDS ORDERED: Acetaminophen 325 MG TABLET PO PRN (07:21)
[2022-02-16] MEDS ORDERED: D5% in Water 1,000 ML IVC PRN (07:21)
[2022-02-16] MEDS ORDERED: Ondansetron ODT 4 MG TAB.RAPDIS SL PRN (08:00)
[2022-02-16] MEDS: Furosemide 20 MG/2 ML VIAL IVP SCH (08:52)
[2022-02-16] MEDS: Ertapenem 1,000 MG in 0.9 % Sodium Chloride Mini Bag 100 ML IVPB SCH (08:52)
[2022-02-16] MEDS: Budesonide/Formoterol 160/4.5 1 PUFF INH IH SCH ×2 (10:40→22:16)
[2022-02-16 11:14] LABS: ABG Base Excess 6 mEq/L (-2 to 3); ABG HCO3 33 mEq/L (21-27); ABG Oxygen Saturation 96 % (95-98); ABG PCO2 57 mmHg (35-45); ABG PH 7.37 pH Units (7.32-7.45); ABG PO2 83 mmHg (85-104); ABG TCO2 35 mEq/L (20-26)
[2022-02-16 13:14] LABS: Lipase 31 Units/L (11-82)
[2022-02-16] MEDS: Metoclopramide 10 MG/2 ML VIAL IVP SCH ×2 (17:15→23:33)
[2022-02-16] MEDS ORDERED: hydrOXYzine pamoate 25 MG CAPSULE PO PRN (21:00)
[2022-02-16] MEDS ORDERED: Melatonin 3 MG TABLET PO PRN (21:00)
[2022-02-17 02:48] LABS: BUN/Creatinine Ratio 69 (6-26); Blood Urea Nitrogen 29 mg/dL (8-23); Calcium 8.3 mg/dL (8.6-10.3); Carbon Dioxide 35 mEq/L (23-29); Chloride 97 mEq/L (98-107); Glucose 101 mg/dL (70-105); Magnesium 1.8 mg/dL (1.6-2.6); Osmolality,Calculated 290 (280-300); Phosphorous 2.1 mg/dL (2.7-4.5); Potassium 3.1 mEq/L (3.5-5.1); Sodium 137 mEq/L (136-145); eGFR For African Americans > 60 (> 60); eGFR For Non-African Americans > 60 (> 60)
[2022-02-17] MEDS: Ipratropium/Albuterol Neb 3 ML IH SCH ×4 (03:39→21:09)
[2022-02-17] MEDS: Metoclopramide 10 MG/2 ML VIAL IVP SCH ×4 (05:27→23:23)
[2022-02-17 06:32] LABS: Hematocrit 41.7 % (35.3-44.9); Mean Corpuscular HGB Conc 32.1 g/dL (31.6-35.5); Mean Corpuscular Volume 93.3 fL (83.0-100.0); Platelet Count 166 K/mcL (140-400); Red Blood Count 4.47 M/mcL (3.82-4.97); Red Cell Distribution Width 14.2 % (11.5-14.5)
[2022-02-17 06:33] LABS: Hemoglobin 13.4 g/dL (11.5-15.4); White Blood Count 13.9 K/mcL (4.3-11.1)
[2022-02-17] MEDS ORDERED: Potassium Phosphate 44 MEQ in 0.9 % Sodium Chloride 250 ML IVPB ONE (07:19)
[2022-02-17] MEDS: Insulin LISPRO 300 UNITS/3 ML VIAL SUBQ SCH ×3 (08:09→16:54)
[2022-02-17 08:28] LABS: Eosinophils # 0.3 K/mcL (0.0-0.6); Lymphocytes # 0.8 K/mcL (0.6-4.6); Monocytes # 1.1 K/mcL (0.0-1.3); Neutrophils # 11.7 K/mcL (1.6-8.9); Platelet Estimate Normal (Normal)
[2022-02-17] MEDS: Pantoprazole 40 MG VIAL IVP SCH (09:08)
[2022-02-17] MEDS: Levothyroxine Sodium 100 MCG VIAL IVP SCH (09:09)
[2022-02-17] MEDS: Ertapenem 1,000 MG in 0.9 % Sodium Chloride Mini Bag 100 ML IVPB SCH (09:09)
[2022-02-17] MEDS: Furosemide 20 MG/2 ML VIAL IVP SCH ×2 (09:09→17:08)
[2022-02-17] MEDS: carvediloL 6.25 MG TABLET PO SCH ×2 (09:22→17:21)
[2022-02-17] MEDS: Budesonide/Formoterol 160/4.5 1 PUFF INH IH SCH ×2 (10:51→21:11)
[2022-02-17 14:06] LABS: ABG Base Excess 8 mEq/L (-2 to 3); ABG HCO3 32 mEq/L (21-27); ABG Oxygen Saturation 92 % (95-98); ABG PCO2 41 mmHg (35-45); ABG PO2 58 mmHg (85-104); ABG TCO2 33 mEq/L (20-26)
[2022-02-17] MEDS ORDERED: *HR* LORazepam 2 MG/ML VIAL IVP PRN (16:30)
[2022-02-17] MEDS ORDERED: Saliva Stimulant 44.3ml BOTTLE PO PRN (16:30)
[2022-02-17] MEDS ORDERED: Morphine Sulfate 2 MG/ML SYRINGE IVP PRN (16:30)
[2022-02-17] MEDS ORDERED: Scopolamine Patch 1.5 MG PATCH.TD72 TD SCH (16:30)
[2022-02-17] MEDS ORDERED: Morphine Sulfate Oral CONC 10 MG/0.5 ML ORAL.SYG SL PRN (16:34)
[2022-02-17] MEDS ORDERED: *HR* FentaNYL (PF) 100 MCG/2 ML VIAL IVP PRN (16:36)
[2022-02-17 21:30] VITALS: BP 129/43; PULSE 69; TEMP 97.1
[2022-02-18] MEDS: Ipratropium/Albuterol Neb 3 ML IH SCH ×3 (03:55→15:37)
[2022-02-18] MEDS: Metoclopramide 10 MG/2 ML VIAL IVP SCH (06:13)
[2022-02-18] MEDS: Insulin LISPRO 300 UNITS/3 ML VIAL SUBQ SCH ×3 (08:17→16:59)
[2022-02-18] MEDS: Levothyroxine Sodium 100 MCG VIAL IVP SCH (08:18)
[2022-02-18] MEDS: carvediloL 6.25 MG TABLET PO SCH ×2 (08:18→16:59)
[2022-02-18] MEDS: Ertapenem 1,000 MG in 0.9 % Sodium Chloride Mini Bag 100 ML IVPB SCH (08:19)
[2022-02-18] MEDS: Furosemide 20 MG/2 ML VIAL IVP SCH (08:20)
[2022-02-18] MEDS: Pantoprazole 40 MG VIAL IVP SCH (08:20)
[2022-02-18] MEDS ORDERED: *HR* LORazepam Oral Conc 2 MG/ML PO PRN (10:31)
[2022-02-18] MEDS: Budesonide/Formoterol 160/4.5 1 PUFF INH IH SCH (10:56)
[2022-02-18 15:39] VITALS: O2SAT 98
== END 2022-02-18 19:50 | disposition hospice, home (50) | DRG 689 ==
LOC: 2ANU 17:52 → EMEROOARM 17:52 → SUATTDRO 21:43 → 2ANU 22:19 → 2NENU 02-15 17:04
PROVIDERS: ADMIT Internal Medicine; ATTEND Internal Medicine